=== PATIENT | male | born 1955 | race African-American/Black ===

== ENCOUNTER 2019-03-09 22:38 | Inpatient (IN) | payer MEDICAID, OTHER ==
[~2019-03-09] VITALS: Ht 172.7 cm; Wt 118.8 kg
[~2019-03-09 22:38] MED LIST: NKM
--- NOTE | 2019-03-09 22:40 | NUR ---
ED Nurse Note: Pt brought in from the bus stop by UBALDO DYER for c/o left shoulder pain. Per UBALDO, pt drank vodka today and blood sugar on scene was 166. Pt is wearing wet clothing from being on the streets and is cold to the touch. Pt is able to answer where he is at, name/, and year, but unable to answer other questions at this time. Pt placed on wallpaper hanger helper. Will continue to monitor. Safety measures in place.
[2019-03-09 22:50] VITALS: BP 128/61
--- NOTE | 2019-03-09 22:50 | NUR ---
ED Nurse Note: Rectal temp taken, temp of 99.0 noted. Warming measures in place, pt started on bear hugger per ERMD order. Will continue to monitor.
[2019-03-09] MEDS ORDERED: Bacitracin Oint UD TOPIC ONE (23:00)
[2019-03-09] MEDS ORDERED: Thiamine HCl 100 MG in D5W 55 ML IVPB SCH (23:00)
[2019-03-09] MEDS ORDERED: Tetanus/Diptheria/Pertussis IM ONE (23:00)
--- NOTE | 2019-03-09 23:30 | NUR ---
ED Nurse Note: noted multiple skin tears to pt left knee.
[2019-03-09 23:34] LABS: BASOPHILS % (AUTO) 0.4 % (0.0-2.0); EOSINOPHILS % (AUTO) 1.3 % (0.0-3.0); HEMATOCRIT 45.8 % (42.0-52.0); HEMOGLOBIN 15.5 G/DL (14.2-18.0); LYMPHOCYTES % (AUTO) 16.9 % (20.0-45.0); MEAN CORPUSCULAR VOLUME 106 FL (80-99); MONOCYTES % (AUTO) 9.8 % (1.0-10.0); NEUTROPHILS % (AUTO) 71.6 % (45.0-75.0); PLATELET COUNT 141 K/UL (150-450); RED BLOOD COUNT 4.31 M/UL (4.70-6.10); RED CELL DISTRIBUTION WIDTH 12.1 % (11.6-14.8); WHITE BLOOD COUNT 3.5 K/UL (4.8-10.8)
[2019-03-09 23:37] LABS: ANION GAP 12 mmol/L (5-15); BLOOD UREA NITROGEN 4 mg/dL (7-18); CARBON DIOXIDE 22 MMOL/L (21-32); CHLORIDE 93 MMOL/L (98-107); CREATININE 0.7 MG/DL (0.55-1.30); POTASSIUM 3.5 MMOL/L (3.5-5.1); SODIUM 126 MMOL/L (136-145)
[2019-03-09 23:45] LABS: ALANINE AMINOTRANSFERASE 99 U/L (12-78); ALBUMIN 3.1 G/DL (3.4-5.0); ALBUMIN/GLOBULIN RATIO 0.5 (1.0-2.7); ALKALINE PHOSPHATASE 108 U/L (46-116); ASPARTATE AMINO TRANSFERASE 186 U/L (15-37); BILIRUBIN,TOTAL 0.8 MG/DL (0.2-1.0); CREATINE KINASE 244 U/L (26-308)
[2019-03-09 23:50] VITALS: BP 136/84
--- NOTE | 2019-03-09 23:50 | NUR ---
ED Nurse Note: Rectal temp retaken, temp of 87.4 noted. ERMD notified.
--- NOTE | 2019-03-09 23:56 | Emergency Room Report ---
History of Present Illness General Chief Complaint: Pain Source: Patient Present Illness HPI Patient transported by paramedics and found on a bus stop. He has been drinking alcohol but complained about left shoulder pain. They state that he denies all other symptoms. They feel he is skin is cold. Patient is unable to answer questions. Allergies: Coded Allergies: No Known Allergies (Unverified , 06/02/15) Patient History Limited by: medical condition Past Medical History: see triage record Nursing Documentation-[facility] Past Medical History: No History, Except For Hx Hypertension: Yes Physical Exam Vital Signs Date Time Temp Pulse Resp B/P (MAP) Pulse Ox O2 Delivery O2 Flow Rate FiO2 03/09/19 22:33 98.1 71 18 177/104 (128) 94 Room Air General Appearance: lethargic, obese, other - Disheveled, Chronically Ill Head: normocephalic, atraumatic Eyes: bilateral eye PERRL, bilateral eye EOMI - Nystagmus, bilateral eye Scleral Injection ENT: moist mucus membranes - No lingual trauma Neck: full range of motion, no bony tend Respiratory: chest non-tender, lungs clear, normal breath sounds Cardiovascular #1: regular rate, rhythm, edema - Lower extremities Cardiovascular #2: 2+ radial (L) Gastrointestinal: non tender, decreased bowel sounds, overweight Genitourinary: normal inspection, no CVA tenderness Musculoskeletal: decreased range of motion, normal range of motion, tender - Left shoulder and left knee Neurologic: motor strength/tone normal, sensory intact, responsive, other - Speech slurred Psychiatric: depressed affect Skin: laceration - Left knee left elbow old, other - Cool Procedures Critical Care Time Critical Care Time Total Critical Care Time: 90 min bedside evaluation and treatment excludes procedures (EKG). Reason for critical care: Hypothermia, possible sepsis, acute alcohol intoxication Possible complications: hypotension, hypertension, DC, shock, arrhythmias, metabolic acidosis, end organ damage, respiratory failure. Interventions: Rewarming, fluid bolus, antibiotics Course: Patient presents with altered level of consciousness and hypothermia. Immediate rewarming begun. We were evaluation for possible sepsis. Evaluation of left arm pain. Core temperature dropped. Possible Ariza waves. Antibiotics begun. Source of infection unclear. Alcohol elevated. Repeat evaluation. Discussion with [place] physician. Multiple discussions with [place] regarding finding admitting physician. Core temperature improving. Patient mentation somewhat improving. Consultations: nursing staff, EMS, respiratory therapy, [place] physician deeming patient unstable for transfer admitting physician, Performed by: Dr. Huber Tolerated well condition = critical Medical Decision Making Diagnostic Impression: Primary Impression: Hypothermia Qualified Codes: T68.XXXA - Hypothermia, initial encounter Additional Impressions: Laceration of left knee Qualified Codes: S81.012A - Laceration without foreign body, left knee, initial encounter Elevated lactic acid level Alcohol intoxication Qualified Codes: F10.929 - Alcohol use, unspecified with intoxication, unspecified Hyponatremia ER Course Patient presents with altered level consciousness complaining of left arm pain and cold. Differential includes sepsis, acute myocardial infarction, alcohol ingestion, other drug ingestions, left knee and left arm contusions, electrolyte imbalance amongst others. Evaluation with EKG, chest x-ray and labs. Thiamine indicated. Rewarming initiated. Clinically elbow and knee have no fractures however these need to be reevaluated. The lacerations appear old and wound care will be administered. Tetanus is given. EKG with bradycardia and possible early Ariza waves. Chest x-ray no infiltrates. Widened mediastinum. White count normal. Sodium low. Elevated BNP. SEPSIS RE-EVALUATION: Patient with elevated lactic acid and hypothermia. White count is normal. Mentation is still altered but he has alcohol on board. Blood pressure and pulse have been stable although he is bradycardic. Due to the elevated lactic acid antibiotics are ordered. Chest x-ray shows no infiltrates. Broad-spectrum antibiotics will be administered. I, Pato Huebr MD, Performed the Sepsis Re-evaluation at 23:55. Temperature dropped to 87.6 with improved circulation from extremities. Rewarming continues. Temperature 88. 00:57. Discussed with Dr. Mcintosh at [facility]. As unable to continue to treat hypothermia , patient not transferrable. Multiple discussions with [facility] regarding which physician will be responsible for admitting patient. They are unable to contact any physician. Contact Dr. Funes and doctor Jaden for admission. Patient improved and admitted to stepdown unit. Labs Test 03/11/19 04:55 03/11/19 11:10 03/12/19 12:00 03/13/19 11:41 White Blood Count 4.7 K/UL (4.8-10.8) Red Blood Count 3.35 M/UL (4.70-6.10) Hemoglobin 12.0 G/DL (14.2-18.0) Hematocrit 36.5 % (42.0-52.0) Mean Corpuscular Volume 109 FL (80-99) Mean Corpuscular Hemoglobin 36.0 PG (27.0-31.0) Mean Corpuscular Hemoglobin Concent 33.0 G/DL (32.0-36.0) Red Cell Distribution Width 12.9 % (11.6-14.8) Platelet Count 95 K/UL (150-450) Mean Platelet Volume 7.4 FL (6.5-10.1) Neutrophils (%) (Auto) % (45.0-75.0) Lymphocytes (%) (Auto) % (20.0-45.0) Monocytes (%) (Auto) % (1.0-10.0) Eosinophils (%) (Auto) % (0.0-3.0) Basophils (%) (Auto) % (0.0-2.0) Differential Total Cells Counted 100 Neutrophils % (Manual) 65 % (45-75) Lymphocytes % (Manual) 16 % (20-45) Monocytes % (Manual) 18 % (1-10) Eosinophils % (Manual) 1 % (0-3) Basophils % (Manual) 0 % (0-2) Band Neutrophils 0 % (0-8) Platelet Estimate Decreased Platelet Morphology Normal Macrocytosis 1+ Sodium Level 142 MMOL/L (136-145) Potassium Level 3.7 MMOL/L (3.5-5.1) Chloride Level 109 MMOL/L (98-107) Carbon Dioxide Level 26 MMOL/L (21-32) Anion Gap 7 mmol/L (5-15) Blood Urea Nitrogen 7 mg/dL (7-18) Creatinine 1.1 MG/DL (0.55-1.30) Estimat Glomerular Filtration Rate > 60 mL/min (>60) Glucose Level 129 MG/DL (74-106) Calcium Level 7.7 MG/DL (8.5-10.1) Phosphorus Level 2.1 MG/DL (2.5-4.9) Magnesium Level 2.1 MG/DL (1.8-2.4) Total Bilirubin 1.7 MG/DL (0.2-1.0) Direct Bilirubin 0.9 MG/DL (0.0-0.3) Aspartate Amino Transf (AST/SGOT) 181 U/L (15-37) Alanine Aminotransferase (ALT/SGPT) 78 U/L (12-78) Alkaline Phosphatase 84 U/L (46-116) Troponin I 0.007 ng/mL (0.000-0.056) Total Protein 6.6 G/DL (6.4-8.2) Albumin 2.1 G/DL (3.4-5.0) Globulin 4.5 g/dL Albumin/Globulin Ratio 0.5 (1.0-2.7) Thyroid Stimulating Hormone (TSH) 1.764 uiU/mL (0.358-3.740) Vancomycin Level Trough 12.7 ug/mL (5.0-12.0) 10.2 ug/mL (5.0-12.0) 11.3 ug/mL (5.0-12.0) EKG Diagnostic Results Rate: bradycardiac Rhythm: NSR ST Segments: no acute changes - No Ariza waves but near Rhythm Strip Diag. Results EP Interpretation: yes Rhythm: no PVC's, no ectopy, other - Bradycardia Chest X-Ray Diagnostic Results Chest X-Ray Diagnostic Results : Chest X-Ray Ordered: Yes # of Views/Limited/Complete: 1 View Indication: Other EP Interpretation: Yes Interpretation: no consolidation, no effusion, no pneumothorax Impression: No acute disease Electronically Signed by: Electronically signed by Pato Huber MD Last Vital Signs Date Time Temp Pulse Resp B/P (MAP) Pulse Ox O2 Delivery O2 Flow Rate FiO2 03/10/19 09:56 Room Air 03/10/19 08:00 98.0 130 20 116/60 (78) 99 Status: improved Disposition: ADMITTED INPATIENT Condition: Critical Referrals: [facility] (PCP) Pato Huber MD Mar 09, 2019 23:56
[2019-03-10] VITALS (9 sets, daily range): BP systolic 98–123; BP diastolic 48–71
[2019-03-10] MEDS ORDERED: Piperacillin/Tazobactam 3.375 GM in NS 110 ML IVPB ONE ×2
[2019-03-10] MEDS ORDERED: Vancomycin 1.5 GM in NS 275 ML IVPB ONE ×2
[2019-03-10 00:30] LABS: APPEARANCE,URINE CLEAR; BILIRUBIN, URINE NEGATIVE (NEGATIVE); COLOR,URINE PALE YELLOW; GLUCOSE, URINE (UA) NEGATIVE (NEGATIVE); KETONES,URINE NEGATIVE (NEGATIVE); LEUKOCYTE ESTERASE ,URINE NEGATIVE (NEGATIVE); NITRITE,URINE NEGATIVE (NEGATIVE); PH,URINE 6 (4.5-8.0); PROTEIN,URINE NEGATIVE (NEGATIVE); UROBILINOGEN,URINE NORMAL MG/DL (0.0-1.0)
--- NOTE | 2019-03-10 00:55 | NUR ---
ED Nurse Note: Rectal temp 88.9, ERMD notified.
[2019-03-10] MEDS ORDERED: Sodium Chloride 2,900 ML IVLG ONE (01:15)
--- NOTE | 2019-03-10 01:15 | NUR ---
ED Nurse Note: Repeat lactic drawn by RN and sent to lab.
--- NOTE | 2019-03-10 02:30 | NUR ---
ED Nurse Note: Pt sleeping comfortably in bed. No acute distress noted. Warming measures in place. Will continue to monitor.
[2019-03-10] MEDS ORDERED: Zosyn 3.375gm inj ONE (02:45)
--- NOTE | 2019-03-10 03:02 | NUR ---
ED Nurse Note: Rectal temp 91.5. ERMD notified.
--- NOTE | 2019-03-10 03:10 | NUR ---
ED Nurse Note: Report given to REJI Clement.
--- NOTE | 2019-03-10 03:30 | NUR ---
ED Nurse Note: Pt taken to SDU via gurney with RN and tech. Pt connected to ditch digger for transfer to floor. Pt is now awake and alert. 20G iv R ac is patent and intact. Pt belongings sent with pt.
--- NOTE | 2019-03-10 03:50 | NUR ---
NURSE NOTES: Pt admitted from ER. Received report from REJI Nieves. Pt is resting on the bed and drowsy and AOx2. Iv site intact and no sign of infiltration noted. On RA and SaO2 99% noted. Applied Tele monitor. Denied pain at this time. Noted multiple skin tear and scratch wound on both legs and Rt. Knee and Rt. arm and elbow. Noted old scar on forehead area. Checked BT ; 91.4 on Axially. Continue to warming treatment with nina hugger. Pt has Moran cath and yellowish urine urinated. Cleaned Pt. Given admission instruction. Noted $63 mendieta. Left message to Sr. Funes for admission order. Will continue to monitor any change of condition and continue to care plan.
--- NOTE | 2019-03-10 06:00 | NUR ---
NURSE NOTES: Left message to Dr. Funes again for admission order and awaiting call back.
--- NOTE | 2019-03-10 07:43 | NUR ---
HAND-OFF: Report given to REJI Moctezuma. Pt is resting on the bed and no sign of acute distress noted. Get call back from Dr. Funes and received admission order.
[2019-03-10] MEDS: Heparin 5000 units/ml inj SUBQ SCH ×2 (08:08→20:53)
--- NOTE | 2019-03-10 08:10 | NUR ---
loretta aldridge d/c as ordered will continue to monitor per protocol.
[2019-03-10] MEDS: D5 1/2NS w/KCl 20mEq 1,000 ML IV SCH ×2 (08:40→21:15)
[2019-03-10 08:56] LABS: BASOPHILS % (AUTO) 0.7 % (0.0-2.0); EOSINOPHILS % (AUTO) 0.8 % (0.0-3.0); HEMATOCRIT 40.1 % (42.0-52.0); HEMOGLOBIN 13.5 G/DL (14.2-18.0); LYMPHOCYTES % (AUTO) 8.2 % (20.0-45.0); MEAN CORPUSCULAR VOLUME 108 FL (80-99); MONOCYTES % (AUTO) 14.5 % (1.0-10.0); NEUTROPHILS % (AUTO) 75.8 % (45.0-75.0); PLATELET COUNT 125 K/UL (150-450); RED CELL DISTRIBUTION WIDTH 12.2 % (11.6-14.8); WHITE BLOOD COUNT 5.2 K/UL (4.8-10.8)
[2019-03-10 09:03] LABS: ALANINE AMINOTRANSFERASE 74 U/L (12-78); ALBUMIN 2.3 G/DL (3.4-5.0); ALBUMIN/GLOBULIN RATIO 0.5 (1.0-2.7); ALKALINE PHOSPHATASE 82 U/L (46-116); ANION GAP 10 mmol/L (5-15); ASPARTATE AMINO TRANSFERASE 145 U/L (15-37); BLOOD UREA NITROGEN 4 mg/dL (7-18); CALCIUM 7.2 MG/DL (8.5-10.1); CARBON DIOXIDE 24 MMOL/L (21-32); CHLORIDE 104 MMOL/L (98-107); CREATININE 0.6 MG/DL (0.55-1.30); POTASSIUM 3.4 MMOL/L (3.5-5.1); SODIUM 138 MMOL/L (136-145)
[2019-03-10] MEDS: Vancomycin 1.5gm/NS Premix IVPB SCH ×2 (11:59→23:49)
--- NOTE | 2019-03-10 12:23 | Diagnostic Imaging Report ---
Indication: Altered mental status, shortness of breath Technique: XRAY Chest 1v Comparison: None Findings: Limited exam with low lung volumes. Cardiac mediastinal contour appears enlarged although this may be exaggerated by low lung volumes and rotation. There are atherosclerotic calcifications in the aorta. Apparent prominence of the pulmonary vascularity and streaky opacities at the bases. No radiographically appreciable pleural effusion or pneumothorax. There are degenerative changes in the spine. No acute osseous abnormality. Impression: Limited exam with low lung volumes and patient rotation. Prominence of the cardiomediastinal silhouette and vascular markings may be artifactual and related to low lung volumes. Correlate clinically to assess for cardiomegaly and mild congestive changes. Streaky bibasilar likely expiratory atelectatic changes.
--- NOTE | 2019-03-10 13:55 | NUR ---
*-* INSURANCE *-* ALL AVAILABLE CLINICALS HAVE BEEN FAXED TO: [employer] ([facility]ONH) MIKY:KEN REF# [id number] [place] [id number] P: [phone] DIRECT TO MIKY F: [phone] P: [phone]
[2019-03-10] MEDS: Piperacillin/Tazobactam 3.375 GM in NS 110 ML IVPB SCH ×2 (13:57→21:15)
--- NOTE | 2019-03-10 14:40 | NUR ---
CASE MANAGEMENT:REVIEW 64 YR OLD MALE BIBA FROM STREET CC;PAIN SI;HYPOTHERMIA. ETOH INTOXICATION. 98.0 71 18 177/104 94% RA WBC 3.5 PLT 141 LAC ACID 3.60 IS;NS IV VANCO IV ZOSYN IV LEVOQUIN IV ADMITTED TO SDU
[2019-03-10] MEDS ORDERED: Thiamine 100mg tab ORAL SCH (15:00)
[2019-03-10] MEDS ORDERED: LORazepam 1mg tab ORAL PRN ×2 (15:00→15:22)
--- NOTE | 2019-03-10 15:12 | History & Physical ---
History and Physical History & Physicial Brandin Funes MD Mar 10, 2019 15:11
--- NOTE | 2019-03-10 17:22 | NUR ---
patient unable to urinate since the folly cath removed. bladder residual 430 per bladder scan. folly cath reinserted and 530 ml dark color urine out put recorded. will continue to monitor.
--- NOTE | 2019-03-10 17:23 | Cardiac Electrophysiology PN ---
Subjective Subjective [id number] Objective Last 24 Hour Vital Signs Date Time Temp Pulse Resp B/P (MAP) Pulse Ox O2 Delivery O2 Flow Rate FiO2 03/10/19 16:16 98.7 03/10/19 13:51 130 116/60 03/10/19 12:00 Room Air 03/10/19 12:00 130 03/10/19 12:00 97.9 130 20 116/60 (78) 94 03/10/19 11:13 118 03/10/19 09:56 Room Air 03/10/19 08:00 Room Air 03/10/19 08:00 98.0 118 20 114/64 (81) 94 03/10/19 06:30 97.7 03/10/19 05:00 96.3 03/10/19 04:00 96 03/10/19 04:00 Room Air 03/10/19 03:50 91.4 96 20 113/62 (79) 99 03/10/19 03:30 91.5 72 12 101/63 100 Room Air 03/10/19 03:02 91.5 85 14 109/57 100 Room Air 03/10/19 02:30 74 11 101/63 99 Room Air 03/10/19 00:54 88.9 73 16 119/71 100 Room Air 03/09/19 23:50 87.4 57 10 136/84 100 Room Air 03/09/19 22:50 99.0 55 12 128/61 100 Room Air 03/09/19 22:33 98.1 71 18 177/104 (128) 94 Room Air Intake and Output 03/09/19 03/10/19 19:00 07:00 Intake Total 1481 ml Output Total 5350 ml Balance -3869 ml Intake IV Total 1481 ml Output Urine Total 5350 ml Laboratory Tests Test 03/09/19 22:50 03/10/19 00:00 03/10/19 01:24 03/10/19 08:05 White Blood Count 3.5 K/UL (4.8-10.8) L 5.2 K/UL (4.8-10.8) Red Blood Count 4.31 M/UL (4.70-6.10) L 3.70 M/UL (4.70-6.10) L Hemoglobin 15.5 G/DL (14.2-18.0) 13.5 G/DL (14.2-18.0) L Hematocrit 45.8 % (42.0-52.0) 40.1 % (42.0-52.0) L Mean Corpuscular Volume 106 FL (80-99) H 108 FL (80-99) H Mean Corpuscular Hemoglobin 35.9 PG (27.0-31.0) H 36.5 PG (27.0-31.0) H Mean Corpuscular Hemoglobin Concent 33.8 G/DL (32.0-36.0) 33.7 G/DL (32.0-36.0) Red Cell Distribution Width 12.1 % (11.6-14.8) 12.2 % (11.6-14.8) Platelet Count 141 K/UL (150-450) L 125 K/UL (150-450) L Mean Platelet Volume 7.4 FL (6.5-10.1) 7.4 FL (6.5-10.1) Neutrophils (%) (Auto) 71.6 % (45.0-75.0) 75.8 % (45.0-75.0) H Lymphocytes (%) (Auto) 16.9 % (20.0-45.0) L 8.2 % (20.0-45.0) L Monocytes (%) (Auto) 9.8 % (1.0-10.0) 14.5 % (1.0-10.0) H Eosinophils (%) (Auto) 1.3 % (0.0-3.0) 0.8 % (0.0-3.0) Basophils (%) (Auto) 0.4 % (0.0-2.0) 0.7 % (0.0-2.0) Sodium Level 126 MMOL/L (136-145) L 138 MMOL/L (136-145) # Potassium Level 3.5 MMOL/L (3.5-5.1) 3.4 MMOL/L (3.5-5.1) L Chloride Level 93 MMOL/L (98-107) L 104 MMOL/L (98-107) Carbon Dioxide Level 22 MMOL/L (21-32) 24 MMOL/L (21-32) Anion Gap 12 mmol/L (5-15) 10 mmol/L (5-15) Blood Urea Nitrogen 4 mg/dL (7-18) L 4 mg/dL (7-18) L Creatinine 0.7 MG/DL (0.55-1.30) 0.6 MG/DL (0.55-1.30) Estimat Glomerular Filtration Rate > 60 mL/min (>60) > 60 mL/min (>60) Glucose Level 174 MG/DL (74-106) H 93 MG/DL (74-106) Lactic Acid Level 3.60 mmol/L (0.4-2.0) H 3.40 mmol/L (0.66-2.22) H 3.40 mmol/L (0.4-2.0) H Calcium Level 8.0 MG/DL (8.5-10.1) L 7.2 MG/DL (8.5-10.1) L Magnesium Level 1.9 MG/DL (1.8-2.4) 1.5 MG/DL (1.8-2.4) L Total Bilirubin 0.8 MG/DL (0.2-1.0) 1.0 MG/DL (0.2-1.0) Aspartate Amino Transf (AST/SGOT) 186 U/L (15-37) H 145 U/L (15-37) H Alanine Aminotransferase (ALT/SGPT) 99 U/L (12-78) H 74 U/L (12-78) Alkaline Phosphatase 108 U/L (46-116) 82 U/L (46-116) Total Creatine Kinase 244 U/L (26-308) Troponin I 0.000 ng/mL (0.000-0.056) Total Protein 9.1 G/DL (6.4-8.2) H 7.0 G/DL (6.4-8.2) Albumin 3.1 G/DL (3.4-5.0) L 2.3 G/DL (3.4-5.0) L Globulin 6.0 g/dL 4.7 g/dL Albumin/Globulin Ratio 0.5 (1.0-2.7) L 0.5 (1.0-2.7) L Thyroid Stimulating Hormone (TSH) 0.765 uiU/mL (0.358-3.740) Salicylates Level < 0.2 ug/mL (2.8-20) L Acetaminophen Level < 2 MCG/ML (10-30) L Serum Alcohol 358 mg/dL Urine Color Pale yellow Urine Appearance Clear Urine pH 6 (4.5-8.0) Urine Specific [place] 1.005 (1.005-1.035) Urine Protein Negative (NEGATIVE) Urine Glucose (UA) Negative (NEGATIVE) Urine Ketones Negative (NEGATIVE) Urine Blood 1+ (NEGATIVE) H Urine Nitrite Negative (NEGATIVE) Urine Bilirubin Negative (NEGATIVE) Urine Urobilinogen Normal MG/DL (0.0-1.0) Urine Leukocyte Esterase Negative (NEGATIVE) Urine RBC 0-2 /HPF (0 - 0) H Urine WBC 0-2 /HPF (0 - 0) Urine Squamous Epithelial Cells Occasional /LPF Urine Bacteria Occasional /HPF (NONE) Urine Opiates Screen Negative (NEGATIVE) Urine Barbiturates Screen Negative (NEGATIVE) Phencyclidine (PCP) Screen Negative (NEGATIVE) Urine Amphetamines Screen Negative (NEGATIVE) Urine Benzodiazepines Screen Negative (NEGATIVE) Urine Cocaine Screen Negative (NEGATIVE) Urine Marijuana (THC) Screen Negative (NEGATIVE) Phosphorus Level 4.0 MG/DL (2.5-4.9) Microbiology Date/Time Source Procedure Growth Status 03/09/19 23:55 Nose - Final Complete 03/09/19 23:55 Nose - Final Complete Yevgeniy Rondon MD Mar 10, 2019 17:23
--- NOTE | 2019-03-10 18:15 | History and Physical Report ---
DATE OF ADMISSION: 03/10/2019 CHIEF COMPLAINT: Altered mental status and weakness. HISTORY OF PRESENT ILLNESS: This is a 64 years old gentleman, who denies any past medical history or past surgical history, who presented to the emergency department after he was found by paramedics on the bus stop. The patient has been drinking alcohol, complained about left shoulder pain, and stated that he denies any fall or trauma. He feels his skin is cool and shortly after initial evaluation in the emergency department, the patient was noted to be hypothermic as well as severe weakness shortly and subsequently, the patient was admitted to the hospital with hypothermia as well as left knee laceration and alcohol intoxication with hyponatremia. PAST MEDICAL HISTORY: None. PAST SURGICAL HISTORY: None. MEDICATIONS AT HOME: None. ALLERGIES: No known drug allergies. SOCIAL HISTORY: Denies any substance abuse. He stated he only drinks twice a week, which I am not sure about that. Denies any smoking. FAMILY HISTORY: Noncontributory. REVIEW OF SYSTEMS: Mostly as above. Denies any dysuria, frequency, or hematuria. Denies any hemoptysis or hematochezia. Denies any double vision. PHYSICAL EXAMINATION: VITAL SIGNS: On admission from the ER, temperature 98.1 degrees, pulse of 71, respirations 18, and blood pressure 177/104. GENERAL: The patient is awake, responsive, no acute distress. HEAD AND NECK: Pupils are reactive to light. Extraocular movements intact. Neck was supple. No JVD. LUNGS: Good air entry with no wheezing or rales. HEART: S1, S2. Tachycardic. No murmur or gallops. ABDOMEN: Soft, nondistended, nontender, and morbidly obese. EXTREMITIES: No cyanosis or clubbing. +1 edema. The patient has a blister on lower extremity. NEUROLOGIC: Cranial nerves II through XII grossly intact. The patient is moving all extremities. Gait was not assessed due to the patient's status. RECTAL: Refused and deferred. GENITOURINARY: Refused and deferred. PSYCHIATRIC: Mood and affect is intact. LABORATORY AND DIAGNOSTIC DATA: On admission, sodium 126, potassium 3.5, chloride 93, bicarbonate 22, BUN 4, creatinine 0.7, glucose is 174, and calcium is 8.0. AST of 186, ALT of 99, and alkaline phosphatase 108. Total CK is 244. Albumin is 3.1. TSH is 0.765. WBC of 3.5, hemoglobin of 15, hematocrit 45, and platelet is 141,000. Urine drug screen negative. Alcohol level is 358. No acetaminophen . Urinalysis, +1 blood, otherwise negative. The patient's chest x-ray noted to be low lung volume. The patient's rotated prominence of the cardiomediastinal silhouette with vascular marking may be artificial and related to the lower lung volume. Strict bibasilar likely exploration atelectasis changes. The patient's EKG was done, noted to be EKG with sinus tachycardia, ventricular rate of 135, no ST elevation was noted. Q-wave was noted in leads I, II as well as aVL. No T-wave inversion. ASSESSMENT: 1. Sepsis, possible lactic acidosis. 2. Tachycardia. 3. Dehydration. 4. Alcohol abuse. 5. Hypothermia. 6. Hyponatremia. 7. Hypomagnesemia. PLAN: 1. Admit the patient to [facility]. 2. We will follow up laboratory and IV hydration. 3. Follow up with cultures. 4. Code status is Full Code. 5. DVT prophylaxis. 6. Heparin subcutaneous. 7. Start the patient on broad-spectrum antibiotics with vancomycin and Zosyn. 8. Start the patient on aggressive IV hydration, magnesium, and potassium supplements. 9. We will follow up with the 2D echo. Brandin Funes M.D. DR: Rod JOB#: [id number] CC:
--- NOTE | 2019-03-10 19:00 | Consultation ---
DATE OF CONSULTATION: 03/10/2019 CARDIOLOGY CONSULTATION CONSULTING PHYSICIAN: Yevgeniy Rondon M.D. REASON FOR CONSULTATION: Tachycardia. HISTORY OF PRESENT ILLNESS: The patient is a 64-year-old gentleman who was found at a bus stop and was reported by paramedics as he has been drinking alcohol, but he was also complaining of left shoulder pain. The patient denied any other symptoms. The patient's blood pressure in the ER was 177/104 with heart rate of 71. Subsequently, he had a 12-lead EKG today that was in sinus tachycardia at 135 beats per minute and possible inferior wall infarct. The patient was admitted and a Cardiology consultation was obtained for further evaluation. REVIEW OF SYSTEMS: Negative other than what is mentioned in the history of present illness. PAST MEDICAL HISTORY: Hypertension. FAMILY HISTORY: Noncontributory. SOCIAL HISTORY: He denies smoking, but drinks alcohol. PHYSICAL EXAMINATION: VITAL SIGNS: Show blood pressure of 116/60, pulse was 130, respirations 18, and he is afebrile. HEAD AND NECK: Showed no JVD. LUNGS: Clear. CARDIOVASCULAR: Tachycardic. S1 and S2 with no gallop or murmur. ABDOMEN: Soft. EXTREMITIES: No pitting edema. LABORATORY AND DIAGNOSTIC DATA: His EKG shows sinus tachycardia at 135, possible infarct. Labs show white count of 5.2, hemoglobin 13.5, hematocrit of 40, and platelet count is 125. Sodium 138, potassium 3.4, BUN of 4, creatinine 0.6. Troponin is negative. His echocardiogram also showed EF of 60 to 65%. ASSESSMENT AND PLAN: 1. Tachycardia, likely due to alcohol withdrawal. His serum alcohol was 358. Heart rate is improved. There is no evidence of SVT or atrial fibrillation. 2. Hypertension. Continue metoprolol 25 mg b.i.d. 3. Sepsis, on IV antibiotics. 4. Heavy alcohol use, on thiamine and folate. Thank you much, Dr. Funes, for allowing me to participate in the care of this patient. Please do not hesitate to contact me for any questions regarding my evaluation. Yevgeniy Rondon M.D. DR: RAJ JOB#: [id number] CC:
--- NOTE | 2019-03-10 19:30 | NUR ---
NURSE NOTES: Received report from Rhianna Arias RN. Pt is A&O x 2, ST at 107 BPM, BP 98/48, T 98.8, RR 20, sating at 100% on room air. Pt denies any pain or distress at this time, no signs or symptoms noted. RAC 20g and R hand 24g PIVs, patent, running D5 1/2 NS with KCL 20 mEq @ 75ml/hr and Zosyn respectively, intact, and asymptomatic. Bed in lowest position, bed alarmed armed, pt wearing yellow socks and gown, call light within reach. Pt informed to use call light if assistance is needed, pt nodded in agreement. Will continue to monitor closely and plan of care.
--- NOTE | 2019-03-10 19:39 | NUR ---
Belén from [facility] called for up date on patient statue.Her call back number [phone]
[2019-03-10] MEDS ORDERED: Tamsulosin 0.4mg cap ORAL SCH (21:00)
--- NOTE | 2019-03-10 23:45 | Consultation ---
DATE OF CONSULTATION: 03/10/2019 CONSULTING PHYSICIAN: Lino Devries M.D. HISTORY OF PRESENT ILLNESS: This is a 64-year-old obese male with history of multiple medical issues including weakness and altered mental status, admitted to the hospital. The patient has a history of alcohol dependence and he drinks on a regular basis. The patient presents with depressed mood, anxiety. He self-medicates PAST PSYCHIATRIC HISTORY: Significant for anxiety, depression. ALLERGIES: No known drug allergies. SUBSTANCE ABUSE HISTORY: Alcohol. He has been using alcohol for several years. MENTAL STATUS EXAMINATION: The patient oriented x4. Overweight. Mood is anxious. Affect is constricted, congruent with mood. Thought process is concrete. Thought content, no suicidal or homicidal ideation. Cognition is impaired. Insight and judgment limited. ASSESSMENT: [place] I Alcohol dependence. Alcohol withdrawal. [place] II Deferred. [place] III As above. [place] IV Low. [place] V 50. PLAN: 1. We will start the patient on Prozac, increase the Ativan 2 mg every 6 hours. 2. . 3. Thiamine. 4. We will continue current medications. Provide the patient with reality orientation and supportive therapy. Lino Devries M.D. DR: YOSELIN JOB#: [id number] CC: CASS
[2019-03-11] VITALS: BP 105/50
[2019-03-11 04:00] VITALS: BP 124/70
[2019-03-11] MEDS: Piperacillin/Tazobactam 3.375 GM in NS 110 ML IVPB SCH ×3 (05:09→22:39)
[2019-03-11 06:56] LABS: ALANINE AMINOTRANSFERASE 78 U/L (12-78); ALBUMIN 2.1 G/DL (3.4-5.0); ALBUMIN/GLOBULIN RATIO 0.5 (1.0-2.7); ALKALINE PHOSPHATASE 84 U/L (46-116); ANION GAP 7 mmol/L (5-15); ASPARTATE AMINO TRANSFERASE 181 U/L (15-37); BILIRUBIN,TOTAL 1.7 MG/DL (0.2-1.0); BLOOD UREA NITROGEN 7 mg/dL (7-18); CALCIUM 7.7 MG/DL (8.5-10.1); CARBON DIOXIDE 26 MMOL/L (21-32); CHLORIDE 109 MMOL/L (98-107); CREATININE 1.1 MG/DL (0.55-1.30); PHOSPHORUS 2.1 MG/DL (2.5-4.9); POTASSIUM 3.7 MMOL/L (3.5-5.1); SODIUM 142 MMOL/L (136-145)
[2019-03-11 06:57] LABS: BILIRUBIN,DIRECT 0.9 MG/DL (0.0-0.3)
[2019-03-11] MEDS ORDERED: LORazepam 1mg tab ORAL PRN (07:00)
[2019-03-11 07:03] LABS: HEMATOCRIT 36.5 % (42.0-52.0); MEAN CORPUSCULAR VOLUME 109 FL (80-99); PLATELET COUNT 95 K/UL (150-450); RED BLOOD COUNT 3.35 M/UL (4.70-6.10); RED CELL DISTRIBUTION WIDTH 12.9 % (11.6-14.8); WHITE BLOOD COUNT 4.7 K/UL (4.8-10.8)
--- NOTE | 2019-03-11 07:37 | NUR ---
HAND-OFF: Report given to REJI Banegas in tele. Pt in stable condition.
[2019-03-11 08:00] VITALS: BP 134/85
--- NOTE | 2019-03-11 08:14 | NUR ---
NURSE NOTES: Received patient from Gio Lopez. Patient being transferred to floor from SDU. Patient is awake and alert. Moran catheter noted with pinkish urine and occasional blood clots will notify Dr. Funes and obtain order for irrigation. Patient has no complain of pain or discomfort at this time. Oriented to room and safety precautions activated. CAll faust within patients reach. Will follow.
[2019-03-11] MEDS: Thiamine 100mg tab ORAL SCH (09:05)
--- NOTE | 2019-03-11 11:13 | Internal Med Progress Note ---
Subjective Physician Name Brandin Funes Attending Physician Brandin Funes MD Current Medications Medications (Trade) Dose Ordered Sig/Thi Route PRN Reason Start Time Stop Time Status Last Admin Dose Admin Acetaminophen (Tylenol) 650 mg Q6H PRN ORAL Mild Pain/Temp > 100.5 03/11/19 07:00 04/09/19 06:59 Dextrose/ Electrolytes 1,000 ml @ 75 mls/hr [id number] IV 03/11/19 10:30 04/09/19 10:29 Fluoxetine HCl (PROzac) 20 mg DAILY ORAL 03/11/19 09:00 04/09/19 16:59 03/11/19 09:05 Folic Acid (Folate) 1 mg DAILY ORAL 03/11/19 09:00 04/09/19 14:59 03/11/19 09:05 Heparin Sodium (Porcine) (Heparin 5000 units/ml) 5,000 units EVERY 12 HOURS SUBQ 03/11/19 09:00 04/09/19 08:59 UNV Lorazepam (Ativan) 2 mg Q6H PRN ORAL For Anxiety 03/11/19 07:00 03/17/19 06:59 Metoprolol Tartrate (Lopressor) 25 mg Q12HR ORAL 03/11/19 09:00 04/09/19 13:44 03/11/19 09:05 Piperacillin Sod/ Tazobactam Sod 3.375 gm/Sodium Chloride 110 ml @ 27.5 mls/hr Q8HR IVPB 03/11/19 14:00 03/17/19 13:59 Tamsulosin HCl (Flomax) 0.4 mg QHS ORAL 03/11/19 21:00 04/09/19 20:59 Thiamine HCl (Vitamin B1) 100 mg DAILY ORAL 03/11/19 09:00 04/09/19 14:59 03/11/19 09:05 Vancomycin HCl (Vanco rx to dose) 1 ea DAILY PRN MISC Per rx protocol 03/11/19 09:00 04/09/19 07:44 Vancomycin/Sodium Chloride 275 ml @ 137.5 mls/ hr Q12H IVPB 03/11/19 12:00 03/15/19 11:59 Allergies: Coded Allergies: No Known Allergies (Unverified , 06/02/15) Subjective Awake, alert, responsive, unable to urinate status post a Moran catheter placement. Denies any chest pain or shortness of breath. Objective Last Vital Signs Date Time Temp Pulse Resp B/P (MAP) Pulse Ox O2 Delivery O2 Flow Rate FiO2 03/11/19 09:05 83 134/85 03/11/19 08:00 98.4 18 96 03/11/19 08:00 Room Air Laboratory Tests Test 03/11/19 04:55 White Blood Count 4.7 K/UL (4.8-10.8) L Red Blood Count 3.35 M/UL (4.70-6.10) L Hemoglobin 12.0 G/DL (14.2-18.0) L Hematocrit 36.5 % (42.0-52.0) L Mean Corpuscular Volume 109 FL (80-99) H Mean Corpuscular Hemoglobin 36.0 PG (27.0-31.0) H Mean Corpuscular Hemoglobin Concent 33.0 G/DL (32.0-36.0) Red Cell Distribution Width 12.9 % (11.6-14.8) Platelet Count 95 K/UL (150-450) L Mean Platelet Volume 7.4 FL (6.5-10.1) Neutrophils (%) (Auto) % (45.0-75.0) Lymphocytes (%) (Auto) % (20.0-45.0) Monocytes (%) (Auto) % (1.0-10.0) Eosinophils (%) (Auto) % (0.0-3.0) Basophils (%) (Auto) % (0.0-2.0) Differential Total Cells Counted 100 Neutrophils % (Manual) 65 % (45-75) Lymphocytes % (Manual) 16 % (20-45) L Monocytes % (Manual) 18 % (1-10) H Eosinophils % (Manual) 1 % (0-3) Basophils % (Manual) 0 % (0-2) Band Neutrophils 0 % (0-8) Platelet Estimate Decreased L Platelet Morphology Normal Macrocytosis 1+ Sodium Level 142 MMOL/L (136-145) Potassium Level 3.7 MMOL/L (3.5-5.1) Chloride Level 109 MMOL/L (98-107) H Carbon Dioxide Level 26 MMOL/L (21-32) Anion Gap 7 mmol/L (5-15) Blood Urea Nitrogen 7 mg/dL (7-18) Creatinine 1.1 MG/DL (0.55-1.30) # Estimat Glomerular Filtration Rate > 60 mL/min (>60) Glucose Level 129 MG/DL (74-106) H Calcium Level 7.7 MG/DL (8.5-10.1) L Phosphorus Level 2.1 MG/DL (2.5-4.9) L Magnesium Level 2.1 MG/DL (1.8-2.4) Total Bilirubin 1.7 MG/DL (0.2-1.0) H Direct Bilirubin 0.9 MG/DL (0.0-0.3) H Aspartate Amino Transf (AST/SGOT) 181 U/L (15-37) H Alanine Aminotransferase (ALT/SGPT) 78 U/L (12-78) Alkaline Phosphatase 84 U/L (46-116) Troponin I 0.007 ng/mL (0.000-0.056) Total Protein 6.6 G/DL (6.4-8.2) Albumin 2.1 G/DL (3.4-5.0) L Globulin 4.5 g/dL Albumin/Globulin Ratio 0.5 (1.0-2.7) L Thyroid Stimulating Hormone (TSH) 1.764 uiU/mL (0.358-3.740) Microbiology Date/Time Source Procedure Growth Status 03/09/19 23:05 Blood Blood Culture - Preliminary NO GROWTH AFTER 24 HOURS Resulted 03/09/19 22:50 Blood Blood Culture - Preliminary NO GROWTH AFTER 24 HOURS Resulted 03/10/19 00:00 Nasal Nares MRSA Culture - Final NO METHICILLIN RESISTANT STAPH AUREUS... Complete 03/09/19 23:55 Nose - Final Complete 03/09/19 23:55 Nose - Final Complete Intake and Output 03/10/19 03/11/19 19:00 07:00 Intake Total 1167.0 ml Output Total 800 ml 1000 ml Balance -800 ml 167.0 ml Intake Oral 200 ml IV Total 967.0 ml Output Urine Total 800 ml 1000 ml Objective GENERAL: The patient is awake, responsive, no acute distress. HEAD AND NECK: Pupils are reactive to light. Extraocular movements intact. Neck was supple. No JVD. LUNGS: Good air entry with no wheezing or rales. HEART: S1, S2. Tachycardic. No murmur or gallops. ABDOMEN: Soft, nondistended, nontender, and morbidly obese. EXTREMITIES: No cyanosis or clubbing. +1 edema. The patient has a blister on lower extremity. NEUROLOGIC: Cranial nerves II through XII grossly intact. The patient is moving all extremities. RECTAL: Refused and deferred. GENITOURINARY: Moran cath PSYCHIATRIC: Mood and affect is intact. Assessment/Plan Assessment/Plan ASSESSMENT: 1. Sepsis, lactic acidosis. 2. Tachycardia. 3. Dehydration. 4. Alcohol abuse. 5. Hypothermia. 6. Hyponatremia. 7. Hypomagnesemia. 8. Urinary retention. PLAN: 1. in Monitor Unit 2. We will follow up laboratory. 3. Follow up with cultures. 4. Code status is Full Code. 5. DVT prophylaxis. 6. Heparin subcutaneous. 7. Broad-spectrum antibiotics with vancomycin and Zosyn. 8. Start on Flomax 9. 2D echo. Brandin Funes MD Mar 11, 2019 11:13
[2019-03-11] MEDS: D5 1/2NS w/KCl 20mEq 1,000 ML IV SCH ×2 (11:17→23:48)
--- NOTE | 2019-03-11 11:33 | Cardiac Electrophysiology PN ---
Assessment/Plan Assessment/Plan 1. Sinus tachycardia due to alcohol withdrawal. His serum alcohol was 358. Heart rate is improved. There is no evidence of SVT or atrial fibrillation. 2. Hypertension. Continue metoprolol 25 mg b.i.d. 3. Sepsis, on IV antibiotics. 4. Heavy alcohol use, on thiamine and folate. Transfer to [place] pending Subjective Subjective Remained in SR. Awaiting [place] transfer. No CP or SOB Objective Last 24 Hour Vital Signs Date Time Temp Pulse Resp B/P (MAP) Pulse Ox O2 Delivery O2 Flow Rate FiO2 03/11/19 09:05 83 134/85 03/11/19 08:00 96 03/11/19 08:00 98.4 83 18 134/85 (101) 96 03/11/19 08:00 Room Air 03/11/19 04:00 Room Air 03/11/19 04:00 99.0 101 20 124/70 (88) 99 03/11/19 04:00 100 03/11/19 00:00 112 03/11/19 00:00 Room Air 03/11/19 00:00 98.7 112 18 105/50 (68) 99 03/10/19 20:45 107 98/48 03/10/19 20:00 98.3 106 18 98/48 (65) 99 03/10/19 20:00 Room Air 03/10/19 20:00 106 03/10/19 18:07 99.4 128 22 123/54 (77) 94 03/10/19 18:06 Room Air 03/10/19 16:16 98.7 03/10/19 16:00 126 03/10/19 16:00 Room Air 03/10/19 16:00 99.4 128 22 123/54 (77) 94 03/10/19 13:51 130 116/60 03/10/19 12:00 Room Air 03/10/19 12:00 130 03/10/19 12:00 97.9 130 20 116/60 (78) 94 Intake and Output 03/10/19 03/11/19 19:00 07:00 Intake Total 1167.0 ml Output Total 800 ml 1000 ml Balance -800 ml 167.0 ml Intake Oral 200 ml IV Total 967.0 ml Output Urine Total 800 ml 1000 ml Laboratory Tests Test 03/11/19 04:55 03/11/19 11:10 White Blood Count 4.7 K/UL (4.8-10.8) L Red Blood Count 3.35 M/UL (4.70-6.10) L Hemoglobin 12.0 G/DL (14.2-18.0) L Hematocrit 36.5 % (42.0-52.0) L Mean Corpuscular Volume 109 FL (80-99) H Mean Corpuscular Hemoglobin 36.0 PG (27.0-31.0) H Mean Corpuscular Hemoglobin Concent 33.0 G/DL (32.0-36.0) Red Cell Distribution Width 12.9 % (11.6-14.8) Platelet Count 95 K/UL (150-450) L Mean Platelet Volume 7.4 FL (6.5-10.1) Neutrophils (%) (Auto) % (45.0-75.0) Lymphocytes (%) (Auto) % (20.0-45.0) Monocytes (%) (Auto) % (1.0-10.0) Eosinophils (%) (Auto) % (0.0-3.0) Basophils (%) (Auto) % (0.0-2.0) Differential Total Cells Counted 100 Neutrophils % (Manual) 65 % (45-75) Lymphocytes % (Manual) 16 % (20-45) L Monocytes % (Manual) 18 % (1-10) H Eosinophils % (Manual) 1 % (0-3) Basophils % (Manual) 0 % (0-2) Band Neutrophils 0 % (0-8) Platelet Estimate Decreased L Platelet Morphology Normal Macrocytosis 1+ Sodium Level 142 MMOL/L (136-145) Potassium Level 3.7 MMOL/L (3.5-5.1) Chloride Level 109 MMOL/L (98-107) H Carbon Dioxide Level 26 MMOL/L (21-32) Anion Gap 7 mmol/L (5-15) Blood Urea Nitrogen 7 mg/dL (7-18) Creatinine 1.1 MG/DL (0.55-1.30) # Estimat Glomerular Filtration Rate > 60 mL/min (>60) Glucose Level 129 MG/DL (74-106) H Calcium Level 7.7 MG/DL (8.5-10.1) L Phosphorus Level 2.1 MG/DL (2.5-4.9) L Magnesium Level 2.1 MG/DL (1.8-2.4) Total Bilirubin 1.7 MG/DL (0.2-1.0) H Direct Bilirubin 0.9 MG/DL (0.0-0.3) H Aspartate Amino Transf (AST/SGOT) 181 U/L (15-37) H Alanine Aminotransferase (ALT/SGPT) 78 U/L (12-78) Alkaline Phosphatase 84 U/L (46-116) Troponin I 0.007 ng/mL (0.000-0.056) Total Protein 6.6 G/DL (6.4-8.2) Albumin 2.1 G/DL (3.4-5.0) L Globulin 4.5 g/dL Albumin/Globulin Ratio 0.5 (1.0-2.7) L Thyroid Stimulating Hormone (TSH) 1.764 uiU/mL (0.358-3.740) Vancomycin Level Trough Pending Microbiology Date/Time Source Procedure Growth Status 03/09/19 23:05 Blood Blood Culture - Preliminary NO GROWTH AFTER 24 HOURS Resulted 03/09/19 22:50 Blood Blood Culture - Preliminary NO GROWTH AFTER 24 HOURS Resulted 03/10/19 00:00 Nasal Nares MRSA Culture - Final NO METHICILLIN RESISTANT STAPH AUREUS... Complete 03/09/19 23:55 Nose - Final Complete 03/09/19 23:55 Nose - Final Complete Objective HEAD AND NECK: Showed no JVD. LUNGS: Clear. CARDIOVASCULAR: Nl S1 and S2 with no gallop or murmur. ABDOMEN: Soft. EXTREMITIES: No pitting edema. Yevgeniy Rondon MD Mar 11, 2019 11:33
[2019-03-11 12:00] VITALS: BP 139/78
[2019-03-11] MEDS ORDERED: Vancomycin 1.5gm/NS Premix 275 ML IVPB SCH (12:00)
--- NOTE | 2019-03-11 12:37 | NUR ---
CALL RECEIVED FROM [facility] RECEIVED CALL FROM KEN AT [facility] RE TRANSFER TO [facility] WILL FOLLOW UP WITH CM PHOTO PRODUCER
--- NOTE | 2019-03-11 12:39 | NUR ---
CASE MANAGEMENT:REVIEW 03/11/19 SI;SEPSIS. DEHYDRATION. 99.4 130 22 98/48 94% RA CA 7.2 BILI 1.7 AST 181 ALB 2.1 IS;VANCO IV Q8 HR ZOSYN IV Q8 HR IVF NS 75 ML HR HEPARIN SUBC TELE STATUS DCP;TRANSFER TO [facility] PENDING
[2019-03-11] MEDS: Vancomycin 1gm/D5W 275ml IVPB SCH ×4 (13:01→21:18)
--- NOTE | 2019-03-11 13:14 | NUR ---
Social Work This SW received a consult due to substance abuse. This SW met with patient, as well as spoke with brother, Nitesh Gaitan ([phone]) who confirmed that patient is not homeless, but lives alone in a house with three steps. Patient has not been working and will be applying for SSI. This SW explained to brother regarding process/how to apply for SSI (brother has been paying for all of patients living expenses). Brother aware of the possibilities of patient transferring to [place], while also aware patient has shown a decline in ambulation here, will need to determine whether patient will require short rehab. Patient was independent prior, not using any DME and taking cab's for transportation (does not drive). Patient has a long history of substance abuse (daily) and has been in and out of substance abuse treatment, according to brother. This SW spoke with brother and patient regarding the need for patients willingness for change and to remain sober. Substance abuse treatment options and resources discussed with brother and patient (list provided to patient in the room). Pending possible transfer to [facility] at this time. Brother explains he plans to become patients payee, once on SSI, due to patient cannot manage his own finances. Patient remains alert/oriented x3, stating that he has been feeling depressed, while denying any suicidal ideations. Psychiatry-Dr Devries consulted.
--- NOTE | 2019-03-11 13:51 | NUR ---
*-* INSURANCE *-* UPDATED CLINICALS HAVE BEEN FAXED TO: [employer] (JONH) BARB:KEN REF# [id number] P: [phone] DIRECT TO [facility] F: [phone] P: [phone]
--- NOTE | 2019-03-11 14:58 | NUR ---
NURSE NOTES: Received Call from Belén santos Gordo. Update provided re: patient status. Per Rn she will speak with doctor re: transfer. Will follow.
[2019-03-11 16:00] VITALS: BP 141/76
[2019-03-11] MEDS ORDERED: NS 275ml ONE (16:26)
--- NOTE | 2019-03-11 19:30 | NUR ---
NURSE NOTES: Received pt and report from REJI Banegas. Observed pt resting in bed with both eyes open and watching television. Pt is A/Ox3. 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 Pt also has a Moran present for urinary retention; patent and draining well. Bed is in the lowest position and locked. Call light and bedside table is within reach. No signs/symptoms of acute distress noted at this time. Will continue plan of care.
--- NOTE | 2019-03-11 19:42 | NUR ---
HAND-OFF: Report given to Gio Lofton. Plan of care endorsed.
[2019-03-11 20:00] VITALS: BP 144/80
[2019-03-11] MEDS ORDERED: Tamsulosin 0.4mg cap ORAL SCH (21:00)
[2019-03-12] VITALS: BP 152/80
--- NOTE | 2019-03-12 00:50 | NUR ---
NURSE NOTES: Found pt standing bedside with IVs pulled out. No bleeding noted. Moran was intact with blood flowing down from legs. Stopped bleeding, cleaned pt, and put pt back in bed. Dr. Funes made aware.
--- NOTE | 2019-03-12 01:30 | Progress Note ---
DATE: 03/11/2019 SUBJECTIVE: The patient anxiety. . White count within normal limits. MENTAL STATUS EXAMINATION: The patient is alert and oriented times self, place, and situation. Mood is anxious. Affect is constricted, congruent with mood. Thought process, linear and goal oriented. Thought content, no suicidal or homicidal ideation. . PLAN: 1. We will continue current medications. 2. Provide the patient with reality orientation and supportive therapy. Lino Devries M.D. DR: SHIRA JOB#: [id number] CC:
--- NOTE | 2019-03-12 01:35 | NUR ---
NURSE NOTES: Pt refused IV insertion. Attempted multiple times. Pt would agree, but then refuses when needle is about to be inserted. Dr Funes made aware.
--- NOTE | 2019-03-12 01:53 | NUR ---
NURSE NOTES: Pt became agitated and tried to get out of bed to leave multiple times. Pt stated, "I need to get out of here. My brother took my clothes." Called security to help pt back in bed.
[2019-03-12 04:00] VITALS: BP 152/93
[2019-03-12] MEDS: Vancomycin 1gm/D5W 275ml IVPB SCH ×4 (05:00→12:58)
--- NOTE | 2019-03-12 05:04 | NUR ---
NURSE NOTES: Unable to administer Vancomycin 1gm IVPB because pt refused IV insertion.
[2019-03-12] MEDS: Piperacillin/Tazobactam 3.375 GM in NS 110 ML IVPB SCH ×3 (06:00→22:08)
--- NOTE | 2019-03-12 06:05 | NUR ---
NURSE NOTES: Unable to administer Zosyn 3.375gm IVPB because pt refused IV insertion.
--- NOTE | 2019-03-12 06:08 | NUR ---
NURSE NOTES: Contacted Dr. Funes regarding Moran reinsertion and no IV access. Awaiting call back.
--- NOTE | 2019-03-12 07:00 | NUR ---
NURSE NOTES: Received orders from Dr. Stanley for reinsertion of Moran and Seroquel 50mg PO BID and Haldol 1mg IM Q4H PRN for agitation. Will note and carry out.
[2019-03-12] MEDS ORDERED: Haloperidol 5mg/ml Inj IM PRN ×2 (07:15→15:28)
--- NOTE | 2019-03-12 07:42 | NUR ---
HAND-OFF: Report given to REJI Banegas. Plan of care endorsed.
[2019-03-12 08:00] VITALS: BP 141/88
--- NOTE | 2019-03-12 08:01 | NUR ---
NURSE NOTES: Received patient from Gio Lofton. Patient is awake, following commands. Patient restless all night according to night Rn removed Moran and IV out. Bladder noted to e distended. Moran reinsert as ordered by MD without difficulty. 1200 of nancy urine came out. 22 gauge IV placed to right hand. Patient able to be redirected and reoriented to reality at this this. Fall precautions in placed. call faust within patients reached. staff alerted re: fall risk. will do frequent rounds and monitor patient throughout this shift.
[2019-03-12] MEDS: Thiamine 100mg tab ORAL SCH (08:19)
[2019-03-12] MEDS ORDERED: Heparin 5000 units/ml inj SUBQ SCH (09:00)
--- NOTE | 2019-03-12 11:54 | Internal Med Progress Note ---
Subjective Date of Service: Mar 12, 2019 Physician Name Reji Saucedo Attending Physician Brandin Funes MD Current Medications Medications (Trade) Dose Ordered Sig/Thi Route PRN Reason Start Time Stop Time Status Last Admin Dose Admin Acetaminophen (Tylenol) 650 mg Q6H PRN ORAL Mild Pain/Temp > 100.5 03/11/19 07:00 04/09/19 06:59 Dextrose/ Electrolytes 1,000 ml @ 75 mls/hr [id number] IV 03/11/19 10:30 04/09/19 10:29 03/11/19 11:17 Fluoxetine HCl (PROzac) 20 mg DAILY ORAL 03/11/19 09:00 04/09/19 16:59 03/12/19 08:19 Folic Acid (Folate) 1 mg DAILY ORAL 03/11/19 09:00 04/09/19 14:59 03/12/19 08:18 Haloperidol Lactate (Haldol) 1 mg Q4H PRN IM Agitation 03/12/19 07:15 04/11/19 07:14 03/12/19 10:29 Heparin Sodium (Porcine) (Heparin 5000 units/ml) 5,000 units EVERY 12 HOURS SUBQ 03/12/19 09:00 04/11/19 08:59 Lorazepam (Ativan) 2 mg Q6H PRN ORAL For Anxiety 03/11/19 07:00 03/17/19 06:59 03/12/19 01:56 Metoprolol Tartrate (Lopressor) 25 mg Q12HR ORAL 03/11/19 09:00 04/09/19 13:44 03/12/19 08:19 Piperacillin Sod/ Tazobactam Sod 3.375 gm/Sodium Chloride 110 ml @ 27.5 mls/hr Q8HR IVPB 03/11/19 14:00 03/17/19 13:59 03/11/19 22:39 Quetiapine Fumarate (SEROqueL) 50 mg BID ORAL 03/12/19 09:00 04/11/19 08:59 03/12/19 08:19 Tamsulosin HCl (Flomax) 0.4 mg QHS ORAL 03/11/19 21:00 04/09/19 20:59 03/11/19 21:17 Thiamine HCl (Vitamin B1) 100 mg DAILY ORAL 03/11/19 09:00 04/09/19 14:59 03/12/19 08:19 Vancomycin HCl (Vanco rx to dose) 1 ea DAILY PRN MISC Per rx protocol 03/11/19 09:00 04/09/19 07:44 Vancomycin HCl 1 gm/Dextrose 275 ml @ 183.708 mls/hr Q8H IVPB 03/11/19 13:00 03/16/19 12:59 03/11/19 21:18 Allergies: Coded Allergies: No Known Allergies (Unverified , 06/02/15) ROS Limited/Unobtainable: No Constitutional: Reports: no symptoms HEENT: Reports: no symptoms Cardiovascular: Reports: no symptoms Respiratory: Reports: no symptoms Gastrointestinal/Abdominal: Reports: no symptoms Genitourinary: Reports: no symptoms Neurologic/Psychiatric: Reports: no symptoms Subjective 64 YO M admitted with hypothermia and alcohol intoxication. Cover for Int Med- DR Funes Objective Last Vital Signs Date Time Temp Pulse Resp B/P (MAP) Pulse Ox O2 Delivery O2 Flow Rate FiO2 03/12/19 09:00 Room Air 03/12/19 08:19 106 141/88 03/12/19 08:00 98.1 18 95 Microbiology Date/Time Source Procedure Growth Status 03/09/19 23:05 Blood Blood Culture - Preliminary NO GROWTH AFTER 48 HOURS Resulted 03/09/19 22:50 Blood Blood Culture - Preliminary NO GROWTH AFTER 48 HOURS Resulted 03/10/19 00:00 Nasal Nares MRSA Culture - Final NO METHICILLIN RESISTANT STAPH AUREUS... Complete 03/09/19 23:55 Nose - Final Complete 03/09/19 23:55 Nose - Final Complete 03/10/19 00:00 Rectum - Final NO CARBAPENEM-RESISTANT ENTEROBACTERI... Complete 03/10/19 00:00 Rectum VRE Culture - Final NO VANCOMYCIN RESISTANT ENTEROCOCCUS ... Complete Intake and Output 03/11/19 03/12/19 19:00 07:00 Intake Total 75 ml 1037.416 ml Output Total 1700 ml 1200 ml Balance -1625 ml -162.584 ml Intake Oral 240 ml IV Total 75 ml 797.416 ml Output Urine Total 1700 ml 1200 ml # Voids 3 Objective Objective GENERAL: The patient is awake, responsive, no acute distress. HEAD AND NECK: Pupils are reactive to light. Extraocular movements intact. Neck was supple. No JVD. LUNGS: Good air entry with no wheezing or rales. HEART: S1, S2. Tachycardic. No murmur or gallops. ABDOMEN: Soft, nondistended, nontender, and morbidly obese. EXTREMITIES: No cyanosis or clubbing. +1 edema. The patient has a blister on lower extremity. NEUROLOGIC: Cranial nerves II through XII grossly intact. The patient is moving all extremities. RECTAL: Refused and deferred. GENITOURINARY: Moran cath PSYCHIATRIC: Mood and affect is intact. Assessment/Plan Assessment/Plan Assessment/Plan Assessment/Plan ASSESSMENT: 1. Sepsis, lactic acidosis. 2. Tachycardia. Improved 3. Dehydration. 4. Alcohol abuse. 5. Hypothermia. Resolved 6. Hyponatremia. 7. Hypomagnesemia. 8. Urinary retention. PLAN: 1. in Monitor Unit 2. We will follow up laboratory. 3. Follow up with cultures. 4. Code status is Full Code. 5. DVT prophylaxis. 6. Heparin subcutaneous. 7. Broad-spectrum antibiotics with vancomycin and Zosyn. 8. Start on Flomax 9. 2D echo. Reji Saucedo MD Mar 12, 2019 11:54
[2019-03-12 12:00] VITALS: BP 149/84
--- NOTE | 2019-03-12 12:00 | NUR ---
NURSE NOTES: Dr. Devries updated re: patients status. New order received. Patient given with PRN Haldol with positive result. Patient resting comfortably art this time. will follow.
[2019-03-12] MEDS ORDERED: chlordiazePOXIDE 25mg Cap ORAL SCH (13:00)
[2019-03-12] MEDS: D5 1/2NS w/KCl 20mEq 1,000 ML IV SCH ×2 (13:00→17:29)
[2019-03-12] MEDS ORDERED: LORazepam 1mg tab ORAL PRN (15:29)
--- NOTE | 2019-03-12 15:43 | NUR ---
TRANSFER TO FLOOR: Patient transferred to Room 410-[address] Stanley's ORder. Report given to Gio Hanna .Patient stable, awake and alert. Belongings (mendieta) with patient during transfer.
--- NOTE | 2019-03-12 15:50 | NUR ---
Received report from Cristiana RN/Tel, pt awake, A/O x2. forgetful, on and off confused, soto in place, draining clear yellow urine, IVF infusing/abx, pt with skin tears on elbows, knees, Vasyl LE, dressings on. call light within reach, bed in low position, bed alarm on, fall precaution maintained. will continue to monitor.
--- NOTE | 2019-03-12 15:54 | Cardiac Electrophysiology PN ---
Assessment/Plan Assessment/Plan 1. Sinus tachycardia due to alcohol withdrawal. Heart rate is improved. There is no evidence of SVT or atrial fibrillation. 2. Hypertension. Continue metoprolol 25 mg b.i.d. 3. Sepsis, on IV antibiotics. 4. Heavy alcohol use, on thiamine and folate. Transfer to [facility]. Transfer to [place] pending Subjective Subjective Remained in SR. Awaiting [place] transfer. No CP or SOB. Will transfer to [facility] Objective Last 24 Hour Vital Signs Date Time Temp Pulse Resp B/P (MAP) Pulse Ox O2 Delivery O2 Flow Rate FiO2 03/12/19 12:00 97.7 96 20 149/84 (105) 96 03/12/19 12:00 89 03/12/19 09:00 Room Air 03/12/19 08:19 106 141/88 03/12/19 08:00 115 03/12/19 08:00 98.1 106 18 141/88 (105) 95 03/12/19 04:00 97.9 99 20 152/93 (112) 96 03/12/19 03:55 108 03/12/19 00:00 78 03/12/19 00:00 97.9 77 20 152/80 (104) 98 03/11/19 21:17 87 144/80 03/11/19 21:00 Room Air 03/11/19 20:00 89 03/11/19 20:00 98.0 87 20 144/80 (101) 98 03/11/19 16:00 98.1 83 20 141/76 (97) 96 03/11/19 16:00 Room Air 03/11/19 16:00 88 Intake and Output 03/11/19 03/12/19 19:00 07:00 Intake Total 75 ml 1037.416 ml Output Total 1700 ml 1200 ml Balance -1625 ml -162.584 ml Intake Oral 240 ml IV Total 75 ml 797.416 ml Output Urine Total 1700 ml 1200 ml # Voids 3 Laboratory Tests Test 03/12/19 12:00 Vancomycin Level Trough 10.2 ug/mL (5.0-12.0) Microbiology Date/Time Source Procedure Growth Status 03/09/19 23:05 Blood Blood Culture - Preliminary NO GROWTH AFTER 48 HOURS Resulted 03/09/19 22:50 Blood Blood Culture - Preliminary NO GROWTH AFTER 48 HOURS Resulted 03/10/19 00:00 Nasal Nares MRSA Culture - Final NO METHICILLIN RESISTANT STAPH AUREUS... Complete 03/09/19 23:55 Nose - Final Complete 03/09/19 23:55 Nose - Final Complete 03/10/19 00:00 Rectum - Final NO CARBAPENEM-RESISTANT ENTEROBACTERI... Complete 03/10/19 00:00 Rectum VRE Culture - Final NO VANCOMYCIN RESISTANT ENTEROCOCCUS ... Complete Objective HEAD AND NECK: Showed no JVD. LUNGS: Clear. CARDIOVASCULAR: Nl S1 and S2 with no gallop or murmur. ABDOMEN: Soft. EXTREMITIES: No pitting edema. Yevgeniy Rondon MD Mar 12, 2019 15:54
[2019-03-12 16:00] VITALS: BP 137/77
[2019-03-12] MEDS: chlordiazePOXIDE 25mg Cap ORAL SCH (17:26)
--- NOTE | 2019-03-12 19:55 | NUR ---
NURSE NOTES: Received patient in bed, awake, alert, oriented x2/3, forgetful at times, patient has Moran catheter [address], draining well. IV site is clean dry and intact, call light is within reach, bed is lowered, locked and alarm is on. Will continue to monitor for comfort and safety.
[2019-03-12 20:00] VITALS: BP 140/74
[2019-03-12] MEDS: Tamsulosin 0.4mg cap ORAL SCH (20:30)
[2019-03-12] MEDS: Vancomycin 1 GM in D5W 275 ML IVPB SCH (20:30)
[2019-03-12] MEDS: Heparin 5000 units/ml inj SUBQ SCH (20:31)
[2019-03-13] VITALS: BP 146/81
[2019-03-13 04:00] VITALS: BP 149/79
[2019-03-13] MEDS: D5 1/2NS w/KCl 20mEq 1,000 ML IV SCH ×2 (04:10→18:10)
[2019-03-13] MEDS: Vancomycin 1 GM in D5W 275 ML IVPB SCH ×3 (04:11→20:44)
[2019-03-13] MEDS: Piperacillin/Tazobactam 3.375 GM in NS 110 ML IVPB SCH ×2 (05:17→15:08)
--- NOTE | 2019-03-13 07:22 | NUR ---
HAND-OFF: Report given to Cyndi MENDOZA.
--- NOTE | 2019-03-13 07:58 | NUR ---
pt awake, A/O x 2-3, forgetful, denies pain, no SOB noted, soto in place, draining clear yellow urine, no clots , no bleeding. IVF infusing, tolerating diet well, no n/v. call light within reach, bed in low position, bed alarm on, fall precaution maintained. will continue to monitor.
[2019-03-13 08:00] VITALS: BP 154/81
[2019-03-13] MEDS: Thiamine 100mg tab ORAL SCH (08:28)
[2019-03-13] MEDS: chlordiazePOXIDE 25mg Cap ORAL SCH ×3 (08:28→17:12)
[2019-03-13] MEDS: Heparin 5000 units/ml inj SUBQ SCH ×2 (08:39→20:45)
[2019-03-13 11:56] VITALS: BP 125/57
--- NOTE | 2019-03-13 12:27 | Internal Med Progress Note ---
Subjective Date of Service: Mar 13, 2019 Physician Name Reji Saucedo Attending Physician Brandin Funes MD Current Medications Medications (Trade) Dose Ordered Sig/Thi Route PRN Reason Start Time Stop Time Status Last Admin Dose Admin Acetaminophen (Tylenol) 650 mg Q6H PRN ORAL Mild Pain/Temp > 100.5 03/12/19 15:28 04/11/19 15:27 Chlordiazepoxide (Librium) 50 mg TID ORAL 03/12/19 18:00 03/19/19 12:59 03/13/19 08:28 Dextrose/ Electrolytes 1,000 ml @ 75 mls/hr [id number] IV 03/12/19 15:30 04/09/19 10:29 03/13/19 04:10 Fluoxetine HCl (PROzac) 20 mg DAILY ORAL 03/13/19 09:00 04/09/19 16:59 03/13/19 08:27 Folic Acid (Folate) 1 mg DAILY ORAL 03/13/19 09:00 04/09/19 14:59 03/13/19 08:28 Haloperidol Lactate (Haldol) 1 mg Q4H PRN IM Agitation 03/12/19 15:28 04/11/19 15:27 Heparin Sodium (Porcine) (Heparin 5000 units/ml) 5,000 units EVERY 12 HOURS SUBQ 03/12/19 21:00 04/11/19 08:59 Lorazepam (Ativan) 2 mg Q6H PRN ORAL For Anxiety 03/12/19 15:29 03/19/19 15:28 Metoprolol Tartrate (Lopressor) 25 mg Q12HR ORAL 03/12/19 21:00 04/09/19 13:44 03/13/19 08:31 Piperacillin Sod/ Tazobactam Sod 3.375 gm/Dextrose 110 ml @ 27.5 mls/hr Q8HR IVPB 03/13/19 22:00 03/20/19 21:59 Piperacillin Sod/ Tazobactam Sod 3.375 gm/Sodium Chloride 110 ml @ 27.5 mls/hr Q8HR IVPB 03/12/19 22:00 03/13/19 17:59 03/13/19 05:17 Quetiapine Fumarate (SEROqueL) 50 mg BID ORAL 03/12/19 18:00 1/27/20 08:59 03/13/19 08:26 Tamsulosin HCl (Flomax) 0.4 mg QHS ORAL 03/12/19 21:00 04/09/19 20:59 03/12/19 20:30 Thiamine HCl (Vitamin B1) 100 mg DAILY ORAL 03/13/19 09:00 04/09/19 14:59 03/13/19 08:28 Vancomycin HCl (Vanco rx to dose) 1 ea DAILY PRN MISC Per rx protocol 03/13/19 09:00 04/09/19 07:44 Vancomycin HCl 1 gm/Dextrose 275 ml @ 183.708 mls/hr Q8H IVPB 03/12/19 21:00 03/16/19 12:59 03/13/19 04:11 Allergies: Coded Allergies: No Known Allergies (Unverified , 06/02/15) ROS Limited/Unobtainable: No Constitutional: Reports: no symptoms HEENT: Reports: no symptoms Cardiovascular: Reports: no symptoms Respiratory: Reports: no symptoms Gastrointestinal/Abdominal: Reports: no symptoms Genitourinary: Reports: no symptoms Neurologic/Psychiatric: Reports: no symptoms Subjective 64 YO M admitted with hypothermia and alcohol intoxication. Cover for Int Med- DR Funes Objective Last Vital Signs Date Time Temp Pulse Resp B/P (MAP) Pulse Ox O2 Delivery O2 Flow Rate FiO2 03/13/19 11:56 98.0 76 19 125/57 (79) 98 03/13/19 09:45 Room Air Laboratory Tests Test 03/13/19 11:41 Vancomycin Level Trough Pending Intake and Output 03/12/19 03/13/19 19:00 07:00 Intake Total 860 ml Output Total 3350 ml 1400 ml Balance -2490 ml -1400 ml Intake Oral 860 ml Output Urine Total 3350 ml 1400 ml Objective Objective GENERAL: The patient is awake, responsive, no acute distress. HEAD AND NECK: Pupils are reactive to light. Extraocular movements intact. Neck was supple. No JVD. LUNGS: Good air entry with no wheezing or rales. HEART: S1, S2. Tachycardic. No murmur or gallops. ABDOMEN: Soft, nondistended, nontender, and morbidly obese. EXTREMITIES: No cyanosis or clubbing. +1 edema. The patient has a blister on lower extremity. NEUROLOGIC: Cranial nerves II through XII grossly intact. The patient is moving all extremities. RECTAL: Refused and deferred. GENITOURINARY: Moran cath PSYCHIATRIC: Mood and affect is intact. Assessment/Plan Assessment/Plan Assessment/Plan Assessment/Plan ASSESSMENT: 1. Sepsis, lactic acidosis. 2. Tachycardia. Improved 3. Dehydration. 4. Alcohol abuse. 5. Hypothermia. Resolved 6. Hyponatremia. 7. Hypomagnesemia. 8. Urinary retention. PLAN: 1. in Monitor Unit 2. We will follow up laboratory. 3. Follow up with cultures. 4. Code status is Full Code. 5. DVT prophylaxis. 6. Heparin subcutaneous. 7. Broad-spectrum antibiotics with vancomycin and Zosyn. 8. Start on Flomax 9. 2D echo. 10. Discharge planning Reji Saucedo MD Mar 13, 2019 12:27
--- NOTE | 2019-03-13 15:06 | Cardiac Electrophysiology PN ---
Assessment/Plan Assessment/Plan 1. Sinus tachycardia due to alcohol withdrawal. There is no evidence of SVT or atrial fibrillation. Resolved 2. Hypertension. Continue metoprolol 25 mg b.i.d. 3. Sepsis, on IV antibiotics. 4. Heavy alcohol use, on thiamine and folate. Transfer to [place] pending Subjective Subjective Transferred to [facility]. Awaiting [place] transfer. No CP or SOB. Objective Last 24 Hour Vital Signs Date Time Temp Pulse Resp B/P (MAP) Pulse Ox O2 Delivery O2 Flow Rate FiO2 03/13/19 11:56 98.0 76 19 125/57 (79) 98 03/13/19 09:45 Room Air 03/13/19 08:31 91 154/81 03/13/19 08:00 98.8 91 18 154/81 (105) 96 03/13/19 04:00 96.4 64 16 149/79 (102) 97 03/13/19 00:00 99.1 82 16 146/81 (102) 03/12/19 21:51 Room Air 03/12/19 20:30 78 149/78 03/12/19 20:00 98.7 86 18 140/74 (96) 97 03/12/19 16:00 98.9 83 21 137/77 (97) 97 Intake and Output 03/12/19 03/13/19 19:00 07:00 Intake Total 860 ml Output Total 3350 ml 1400 ml Balance -2490 ml -1400 ml Intake Oral 860 ml Output Urine Total 3350 ml 1400 ml Laboratory Tests Test 03/13/19 11:41 Vancomycin Level Trough 11.3 ug/mL (5.0-12.0) Objective HEAD AND NECK: Showed no JVD. LUNGS: Clear. CARDIOVASCULAR: Nl S1 and S2 with no gallop or murmur. ABDOMEN: Soft. EXTREMITIES: No pitting edema. Yevgeniy Rondon MD Mar 13, 2019 15:06
--- NOTE | 2019-03-13 15:26 | NUR ---
Pts brother's cell (Nitesh Gaitan),# [phone].
[2019-03-13 16:00] VITALS: BP 121/66
--- NOTE | 2019-03-13 19:29 | NUR ---
NURSE NOTES: Received patient in bed, asleep, IV site is clean dry and intact,no acute distress noted, call light is within reach, bed is lowered, locked, alarm is on. Will continue to monitor for comfort and safety.
[2019-03-13 20:00] VITALS: BP 133/79
--- NOTE | 2019-03-13 20:15 | Progress Note ---
DATE: 03/12/2019 SUBJECTIVE: The patient was seen yesterday, 03/12/2019. The patient is doing better, much improved. Less anxiety. Tolerating medication. No side effects from medications. less Ativan as needed. MENTAL STATUS EXAMINATION: Alert and oriented times self, place, and situation. Mood is anxious. Affect is constricted. Congruent with mood. Thought process is concrete. Thought content, no suicidal or homicidal ideation. ASSESSMENT: 1. Major depressive disorder. 2. Alcohol dependence. 3. Alcohol withdrawal. PLAN: 1. Continue folate. Continue thiamine. Continue the fluoxetine. Continue Seroquel 50 twice a day. 2. Provide the patient with reality orientation and supportive therapy. Lino Devries M.D. DR: SHIRA JOB#: [id number] CC:
[2019-03-13] MEDS: Tamsulosin 0.4mg cap ORAL SCH (20:44)
[2019-03-13] MEDS: Piperacillin/Tazobactam 3.375 GM in D5W 110 ML IVPB SCH (22:00)
[2019-03-13] MEDS ORDERED: Piperacillin/Tazobactam 3.375 GM in D5W 110 ML IVPB SCH (22:00)
[2019-03-14 00:15] VITALS: BP 141/96
[2019-03-14 04:00] VITALS: BP 140/94
[2019-03-14 04:56] LABS: HEMATOCRIT 40.6 % (42.0-52.0); HEMOGLOBIN 13.3 G/DL (14.2-18.0); MEAN CORPUSCULAR VOLUME 115 FL (80-99); PLATELET COUNT 105 K/UL (150-450); RED BLOOD COUNT 3.52 M/UL (4.70-6.10); RED CELL DISTRIBUTION WIDTH 12.9 % (11.6-14.8)
[2019-03-14 04:58] LABS: ANION GAP 5 mmol/L (5-15); BLOOD UREA NITROGEN 12 mg/dL (7-18); CARBON DIOXIDE 29 MMOL/L (21-32); CHLORIDE 108 MMOL/L (98-107); CREATININE 1.1 MG/DL (0.55-1.30); POTASSIUM 3.3 MMOL/L (3.5-5.1); SODIUM 142 MMOL/L (136-145)
[2019-03-14] MEDS: Piperacillin/Tazobactam 3.375 GM in D5W 110 ML IVPB SCH ×3 (05:27→22:36)
[2019-03-14] MEDS: D5 1/2NS w/KCl 20mEq 1,000 ML IV SCH ×2 (05:30→22:23)
--- NOTE | 2019-03-14 07:45 | NUR ---
NURSE NOTES: Received patient on bed, asleep. IV site intact and patent. Moran catheter intact and patent. Bed in low and locked position,c all light in reach. No signs of respiratory distress or pain. Room board updated, will continue to monitor.
[2019-03-14 08:00] VITALS: BP 170/98
[2019-03-14] MEDS ORDERED: Vancomycin 1.5gm/D5W 275ml IVPB SCH ×2 (08:00)
[2019-03-14] MEDS: chlordiazePOXIDE 25mg Cap ORAL SCH ×3 (09:15→18:20)
[2019-03-14] MEDS: Vancomycin 1.5gm/NS Premix 275 ML IVPB SCH ×2 (09:15→18:20)
[2019-03-14] MEDS: Thiamine 100mg tab ORAL SCH (09:15)
[2019-03-14] MEDS: Heparin 5000 units/ml inj SUBQ SCH ×2 (09:30→22:28)
--- NOTE | 2019-03-14 09:40 | NUR ---
PT EVALUATION NOTE Patient seen for initial evaluation. Patient presents with generalized weakness and impaired balance which affects patient's ability to perform mobility tasks. Patient requires mod assist for bed mobility and transfers with FWW. Patient very unsteady in standing, only able to take a few small side steps with FWW and mod assist. Patient unable to ambulate at this time. Patient will benefit from skilled inpatient PT intervention to address strength, balance and safety for improved level of functional mobility. Recommend discharge to SNF for further rehab once medically cleared by MD. Recommend FWW for safe ambulation. Addendum: 03/14/19 at 1222 by AIDE GIL PT Amended: Links added.
--- NOTE | 2019-03-14 09:59 | NUR ---
NURSE NOTES: Patient refused stool softeners and heparin scheduled medications. Risks versus benefits explained. Addendum: 03/14/19 at 1001 by WILLI BASURTO RN RN Disregard previous note. Entered in error.
[2019-03-14 12:00] VITALS: BP 145/76
--- NOTE | 2019-03-14 13:17 | Internal Med Progress Note ---
Subjective Date of Service: Mar 14, 2019 Physician Name Reji Saucedo Attending Physician Brandin Funes MD Current Medications Medications (Trade) Dose Ordered Sig/Thi Route PRN Reason Start Time Stop Time Status Last Admin Dose Admin Acetaminophen (Tylenol) 650 mg Q6H PRN ORAL Mild Pain/Temp > 100.5 03/12/19 15:28 04/11/19 15:27 Chlordiazepoxide (Librium) 50 mg TID ORAL 03/12/19 18:00 03/19/19 12:59 03/14/19 09:15 Dextrose/ Electrolytes 1,000 ml @ 75 mls/hr [id number] IV 03/12/19 15:30 04/09/19 10:29 03/14/19 05:30 Fluoxetine HCl (PROzac) 20 mg DAILY ORAL 03/13/19 09:00 04/09/19 16:59 03/14/19 09:15 Folic Acid (Folate) 1 mg DAILY ORAL 03/13/19 09:00 04/09/19 14:59 03/14/19 09:15 Haloperidol Lactate (Haldol) 1 mg Q4H PRN IM Agitation 03/12/19 15:28 04/11/19 15:27 Heparin Sodium (Porcine) (Heparin 5000 units/ml) 5,000 units EVERY 12 HOURS SUBQ 03/12/19 21:00 04/11/19 08:59 Lorazepam (Ativan) 2 mg Q6H PRN ORAL For Anxiety 03/12/19 15:29 03/19/19 15:28 03/14/19 04:59 Metoprolol Tartrate (Lopressor) 25 mg Q12HR ORAL 03/12/19 21:00 04/09/19 13:44 03/14/19 09:15 Piperacillin Sod/ Tazobactam Sod 3.375 gm/Dextrose 110 ml @ 27.5 mls/hr Q8HR IVPB 03/13/19 22:00 03/20/19 21:59 03/14/19 05:27 Quetiapine Fumarate (SEROqueL) 50 mg BID ORAL 03/12/19 18:00 04/11/19 08:59 03/14/19 09:15 Tamsulosin HCl (Flomax) 0.4 mg QHS ORAL 03/12/19 21:00 1/25/20 20:59 03/13/19 20:44 Thiamine HCl (Vitamin B1) 100 mg DAILY ORAL 03/13/19 09:00 04/09/19 14:59 03/14/19 09:15 Vancomycin HCl (Vanco rx to dose) 1 ea DAILY PRN MISC Per rx protocol 03/13/19 09:00 04/09/19 07:44 Vancomycin/Sodium Chloride 275 ml @ 137.5 mls/ hr Q8H IVPB 03/14/19 09:00 03/19/19 08:59 03/14/19 09:15 Allergies: Coded Allergies: No Known Allergies (Unverified , 06/02/15) ROS Limited/Unobtainable: No Constitutional: Reports: no symptoms HEENT: Reports: no symptoms Cardiovascular: Reports: no symptoms Respiratory: Reports: no symptoms Gastrointestinal/Abdominal: Reports: no symptoms Genitourinary: Reports: no symptoms Neurologic/Psychiatric: Reports: no symptoms Subjective 64 YO M admitted with hypothermia and alcohol intoxication. Cover for [facility] Med- DR Funes. Await transfer to [facility] Last Vital Signs Date Time Temp Pulse Resp B/P (MAP) Pulse Ox O2 Delivery O2 Flow Rate FiO2 03/14/19 12:00 98.1 73 18 145/76 (99) 96 03/14/19 09:00 Room Air Laboratory Tests Test 03/14/19 04:10 White Blood Count 6.0 K/UL (4.8-10.8) Red Blood Count 3.52 M/UL (4.70-6.10) L Hemoglobin 13.3 G/DL (14.2-18.0) L Hematocrit 40.6 % (42.0-52.0) L Mean Corpuscular Volume 115 FL (80-99) H Mean Corpuscular Hemoglobin 37.9 PG (27.0-31.0) H Mean Corpuscular Hemoglobin Concent 32.8 G/DL (32.0-36.0) Red Cell Distribution Width 12.9 % (11.6-14.8) Platelet Count 105 K/UL (150-450) L Mean Platelet Volume 8.2 FL (6.5-10.1) Neutrophils (%) (Auto) % (45.0-75.0) Lymphocytes (%) (Auto) % (20.0-45.0) Monocytes (%) (Auto) % (1.0-10.0) Eosinophils (%) (Auto) % (0.0-3.0) Basophils (%) (Auto) % (0.0-2.0) Differential Total Cells Counted 100 Neutrophils % (Manual) 69 % (45-75) Lymphocytes % (Manual) 26 % (20-45) Monocytes % (Manual) 3 % (1-10) Eosinophils % (Manual) 2 % (0-3) Basophils % (Manual) 0 % (0-2) Band Neutrophils 0 % (0-8) Platelet Estimate Decreased L Platelet Morphology Normal Polychromasia 1+ Macrocytosis 1+ Sodium Level 142 MMOL/L (136-145) Potassium Level 3.3 MMOL/L (3.5-5.1) L Chloride Level 108 MMOL/L (98-107) H Carbon Dioxide Level 29 MMOL/L (21-32) Anion Gap 5 mmol/L (5-15) Blood Urea Nitrogen 12 mg/dL (7-18) Creatinine 1.1 MG/DL (0.55-1.30) Estimat Glomerular Filtration Rate > 60 mL/min (>60) Glucose Level 100 MG/DL (74-106) Calcium Level 8.0 MG/DL (8.5-10.1) L Vancomycin Level Trough 6.4 ug/mL (5.0-12.0) Intake and Output 03/13/19 03/14/19 19:00 07:00 Intake Total 1167.416 ml 720 ml Output Total 1100 ml 3000 ml Balance 67.416 ml -2280 ml Intake Oral 800 ml 720 ml IV Total 367.416 ml Output Urine Total 1100 ml 3000 ml # Voids 1 Objective Objective GENERAL: The patient is awake, responsive, no acute distress. HEAD AND NECK: Pupils are reactive to light. Extraocular movements intact. Neck was supple. No JVD. LUNGS: Good air entry with no wheezing or rales. HEART: S1, S2. Tachycardic. No murmur or gallops. ABDOMEN: Soft, nondistended, nontender, and morbidly obese. EXTREMITIES: No cyanosis or clubbing. +1 edema. The patient has a blister on lower extremity. NEUROLOGIC: Cranial nerves II through XII grossly intact. The patient is moving all extremities. RECTAL: Refused and deferred. GENITOURINARY: Moran cath PSYCHIATRIC: Mood and affect is intact. Assessment/Plan Assessment/Plan Assessment/Plan Assessment/Plan ASSESSMENT: 1. Sepsis, lactic acidosis. 2. Tachycardia. Improved 3. Dehydration. 4. Alcohol abuse. 5. Hypothermia. Resolved 6. Hyponatremia. 7. Hypomagnesemia. 8. Urinary retention. PLAN: 1. in Monitor Unit 2. We will follow up laboratory. 3. Follow up with cultures. 4. Code status is Full Code. 5. DVT prophylaxis. 6. Heparin subcutaneous. 7. Broad-spectrum antibiotics with vancomycin and Zosyn. 8. Start on Flomax 9. 2D echo. 10. Discharge planning-transfer to [place] Reji Saucedo MD Mar 14, 2019 13:17
--- NOTE | 2019-03-14 15:08 | NUR ---
CASE MANAGEMENT:REVIEW 03/14/19 SI;SEPSIS 96.4 93 12 170/98 95% RA AST 181 IS;ZOSYN IV Q8 HR VANCO IV Q8 HR MED SURG STATUS
--- NOTE | 2019-03-14 15:33 | NUR ---
CASE MANAGEMENT:REVIEW 03/12/19 SI;SEPSIS 97.7 115 21 152/93 95% RA AST 181 2.1 IS;ZOSYN IV Q8 HR VANCO IV Q8 HR MED SURG STATUS 03/13/19 SI;SEPSIS 97.2 82 18 170/98 95% RA AST 181 2.1 IS;ZOSYN IV Q8 HR VANCO IV Q8 HR MED SURG STATUS
[2019-03-14 16:00] VITALS: BP 152/76
--- NOTE | 2019-03-14 16:20 | NUR ---
*-* INSURANCE *-* UPDATED CLINICALS HAVE BEEN FAXED TO: [facility] (JONH) BARB:KEN REF# [id number] OR [id number] P: [phone] DIRECT TO [facility] F: [phone] P: [phone]
--- NOTE | 2019-03-14 16:36 | Cardiac Electrophysiology PN ---
Assessment/Plan Assessment/Plan 1. Sinus tachycardia due to alcohol withdrawal. No evidence of SVT or atrial fibrillation. 2. Hypertension. Continue metoprolol 25 mg b.i.d. 3. Sepsis, on IV antibiotics. 4. Heavy alcohol use, on thiamine and folate. Transfer to [place] pending Subjective Subjective Awaiting [place] transfer. No CP or SOB. RN at bedside Objective Last 24 Hour Vital Signs Date Time Temp Pulse Resp B/P (MAP) Pulse Ox O2 Delivery O2 Flow Rate FiO2 03/14/19 12:00 98.1 73 18 145/76 (99) 96 03/14/19 09:15 75 170/98 03/14/19 09:00 Room Air 03/14/19 08:00 98.3 75 18 170/98 (122) 95 03/14/19 04:00 97.5 67 18 140/94 (109) 97 03/14/19 00:15 97.2 82 18 141/96 (111) 98 03/13/19 21:12 Room Air 03/13/19 20:45 80 133/79 03/13/19 20:00 97.5 80 12 133/79 (97) 98 Intake and Output 03/13/19 03/14/19 19:00 07:00 Intake Total 1167.416 ml 720 ml Output Total 1100 ml 3000 ml Balance 67.416 ml -2280 ml Intake Oral 800 ml 720 ml IV Total 367.416 ml Output Urine Total 1100 ml 3000 ml # Voids 1 Laboratory Tests Test 03/14/19 04:10 White Blood Count 6.0 K/UL (4.8-10.8) Red Blood Count 3.52 M/UL (4.70-6.10) L Hemoglobin 13.3 G/DL (14.2-18.0) L Hematocrit 40.6 % (42.0-52.0) L Mean Corpuscular Volume 115 FL (80-99) H Mean Corpuscular Hemoglobin 37.9 PG (27.0-31.0) H Mean Corpuscular Hemoglobin Concent 32.8 G/DL (32.0-36.0) Red Cell Distribution Width 12.9 % (11.6-14.8) Platelet Count 105 K/UL (150-450) L Mean Platelet Volume 8.2 FL (6.5-10.1) Neutrophils (%) (Auto) % (45.0-75.0) Lymphocytes (%) (Auto) % (20.0-45.0) Monocytes (%) (Auto) % (1.0-10.0) Eosinophils (%) (Auto) % (0.0-3.0) Basophils (%) (Auto) % (0.0-2.0) Differential Total Cells Counted 100 Neutrophils % (Manual) 69 % (45-75) Lymphocytes % (Manual) 26 % (20-45) Monocytes % (Manual) 3 % (1-10) Eosinophils % (Manual) 2 % (0-3) Basophils % (Manual) 0 % (0-2) Band Neutrophils 0 % (0-8) Platelet Estimate Decreased L Platelet Morphology Normal Polychromasia 1+ Macrocytosis 1+ Sodium Level 142 MMOL/L (136-145) Potassium Level 3.3 MMOL/L (3.5-5.1) L Chloride Level 108 MMOL/L (98-107) H Carbon Dioxide Level 29 MMOL/L (21-32) Anion Gap 5 mmol/L (5-15) Blood Urea Nitrogen 12 mg/dL (7-18) Creatinine 1.1 MG/DL (0.55-1.30) Estimat Glomerular Filtration Rate > 60 mL/min (>60) Glucose Level 100 MG/DL (74-106) Calcium Level 8.0 MG/DL (8.5-10.1) L Vancomycin Level Trough 6.4 ug/mL (5.0-12.0) Objective HEAD AND NECK: No JVD. LUNGS: Clear. CARDIOVASCULAR: Nl S1 and S2 with no gallop or murmur. ABDOMEN: Soft. EXTREMITIES: No pitting edema. Yevgeniy Rondon MD Mar 14, 2019 16:36
--- NOTE | 2019-03-14 19:33 | NUR ---
HAND-OFF: Report given to REJI Johnson.
--- NOTE | 2019-03-14 19:48 | NUR ---
NURSE NOTES: Pt. received from REJI Whyte. Pt. asleep in bed, on room air, no signs of pain or respiratory distress. IV site left AC 22g running fluids, intact and patent. Bed is low and locked, side rails x2 are up, bed alarm active, and call light is in reach. Will continue to monitor.
[2019-03-14 20:00] VITALS: BP 133/80
[2019-03-14] MEDS: Tamsulosin 0.4mg cap ORAL SCH (22:23)
[2019-03-15] VITALS (7 sets, daily range): BP systolic 135–162; BP diastolic 89–95
[2019-03-15] MEDS: Vancomycin 1.5gm/NS Premix 275 ML IVPB SCH ×2 (03:29→09:47)
[2019-03-15] MEDS: Piperacillin/Tazobactam 3.375 GM in D5W 110 ML IVPB SCH ×3 (05:32→22:00)
--- NOTE | 2019-03-15 07:27 | NUR ---
HAND-OFF: Report given to REJI Whyte.
--- NOTE | 2019-03-15 07:40 | NUR ---
NURSE NOTES: Received patient on bed, asleep. IV site intact and patent. Bed in low and locked position, call light in reach. Moran catheter intact and patent. No signs of respiratory distress or pain. Room board updated, will continue to monitor.
[2019-03-15 09:45] LABS: ANION GAP 7 mmol/L (5-15); BLOOD UREA NITROGEN 15 mg/dL (7-18); CALCIUM 8.2 MG/DL (8.5-10.1); CARBON DIOXIDE 29 MMOL/L (21-32); CHLORIDE 113 MMOL/L (98-107); CREATININE 1.1 MG/DL (0.55-1.30); SODIUM 149 MMOL/L (136-145)
[2019-03-15] MEDS: chlordiazePOXIDE 25mg Cap ORAL SCH ×3 (09:47→17:35)
[2019-03-15] MEDS: Thiamine 100mg tab ORAL SCH (09:48)
[2019-03-15 10:00] LABS: HEMATOCRIT 41.2 % (42.0-52.0); HEMOGLOBIN 13.2 G/DL (14.2-18.0); MEAN CORPUSCULAR VOLUME 117 FL (80-99); PLATELET COUNT 127 K/UL (150-450); RED BLOOD COUNT 3.54 M/UL (4.70-6.10); RED CELL DISTRIBUTION WIDTH 12.9 % (11.6-14.8); WHITE BLOOD COUNT 6.6 K/UL (4.8-10.8)
--- NOTE | 2019-03-15 10:15 | NUR ---
CASE MANAGEMENT:REVIEW 03/15/19 SI;SEPSIS 98.7 91 20 162/93 96% RA NA 149 K 113 IS;VANCO IV Q8 HR ZOSYN IV Q8 HR HEPARIN SUBC Q12 HR MED SURG STATUS
--- NOTE | 2019-03-15 11:59 | NUR ---
*-* INSURANCE *-* UPDATED CLINICALS HAVE BEEN FAXED TO: [facility] (JONH) BARB:KEN REF# [id number] P: [phone] DIRECT TO [facility] F: [phone]
[2019-03-15] MEDS: D5 1/2NS w/KCl 20mEq 1,000 ML IV SCH ×2 (13:21→23:30)
[2019-03-15] MEDS: Heparin 5000 units/ml inj SUBQ SCH ×2 (13:23→21:00)
--- NOTE | 2019-03-15 14:20 | Internal Med Progress Note ---
Subjective Date of Service: Mar 15, 2019 Physician Name Reji Saucedo Attending Physician Brandin Funes MD Current Medications Medications (Trade) Dose Ordered Sig/Thi Route PRN Reason Start Time Stop Time Status Last Admin Dose Admin Acetaminophen (Tylenol) 650 mg Q6H PRN ORAL Mild Pain/Temp > 100.5 03/12/19 15:28 04/11/19 15:27 Chlordiazepoxide (Librium) 50 mg TID ORAL 03/12/19 18:00 03/19/19 12:59 03/15/19 13:22 Dextrose/ Electrolytes 1,000 ml @ 75 mls/hr [id number] IV 03/12/19 15:30 04/09/19 10:29 03/15/19 13:21 Fluoxetine HCl (PROzac) 20 mg DAILY ORAL 03/13/19 09:00 04/09/19 16:59 03/15/19 09:48 Folic Acid (Folate) 1 mg DAILY ORAL 03/13/19 09:00 04/09/19 14:59 03/15/19 09:47 Haloperidol Lactate (Haldol) 1 mg Q4H PRN IM Agitation 03/12/19 15:28 04/11/19 15:27 Heparin Sodium (Porcine) (Heparin 5000 units/ml) 5,000 units EVERY 12 HOURS SUBQ 03/12/19 21:00 04/11/19 08:59 03/15/19 13:23 Lorazepam (Ativan) 2 mg Q6H PRN ORAL For Anxiety 03/12/19 15:29 03/19/19 15:28 03/14/19 04:59 Metoprolol Tartrate (Lopressor) 25 mg Q12HR ORAL 03/12/19 21:00 04/09/19 13:44 03/15/19 09:47 Piperacillin Sod/ Tazobactam Sod 3.375 gm/Dextrose 110 ml @ 27.5 mls/hr Q8HR IVPB 03/13/19 22:00 03/20/19 21:59 03/15/19 13:22 Quetiapine Fumarate (SEROqueL) 50 mg BID ORAL 03/12/19 18:00 04/11/19 08:59 03/15/19 09:48 Tamsulosin HCl (Flomax) 0.4 mg QHS ORAL 03/12/19 21:00 04/09/19 20:59 03/14/19 22:23 Thiamine HCl (Vitamin B1) 100 mg DAILY ORAL 03/13/19 09:00 04/09/19 14:59 03/15/19 09:48 Vancomycin HCl (Vanco rx to dose) 1 ea DAILY PRN MISC Per rx protocol 03/13/19 09:00 04/09/19 07:44 Vancomycin/Sodium Chloride 275 ml @ 137.5 mls/ hr Q12H IVPB 03/15/19 21:00 03/20/19 20:59 Allergies: Coded Allergies: No Known Allergies (Unverified , 06/02/15) ROS Limited/Unobtainable: No Constitutional: Reports: no symptoms HEENT: Reports: no symptoms Cardiovascular: Reports: no symptoms Respiratory: Reports: no symptoms Gastrointestinal/Abdominal: Reports: no symptoms Genitourinary: Reports: no symptoms Neurologic/Psychiatric: Reports: no symptoms Subjective 64 YO M admitted with hypothermia and alcohol intoxication. Cover for [facility] Med- DR Funes. Await transfer to [facility] Last Vital Signs Date Time Temp Pulse Resp B/P (MAP) Pulse Ox O2 Delivery O2 Flow Rate FiO2 03/15/19 12:00 98.1 93 20 144/94 (111) 95 03/15/19 09:00 Room Air Laboratory Tests Test 03/15/19 08:10 White Blood Count 6.6 K/UL (4.8-10.8) Red Blood Count 3.54 M/UL (4.70-6.10) L Hemoglobin 13.2 G/DL (14.2-18.0) L Hematocrit 41.2 % (42.0-52.0) L Mean Corpuscular Volume 117 FL (80-99) H Mean Corpuscular Hemoglobin 37.4 PG (27.0-31.0) H Mean Corpuscular Hemoglobin Concent 32.1 G/DL (32.0-36.0) Red Cell Distribution Width 12.9 % (11.6-14.8) Platelet Count 127 K/UL (150-450) L Mean Platelet Volume 8.4 FL (6.5-10.1) Neutrophils (%) (Auto) % (45.0-75.0) Lymphocytes (%) (Auto) % (20.0-45.0) Monocytes (%) (Auto) % (1.0-10.0) Eosinophils (%) (Auto) % (0.0-3.0) Basophils (%) (Auto) % (0.0-2.0) Differential Total Cells Counted 100 Neutrophils % (Manual) 73 % (45-75) Lymphocytes % (Manual) 9 % (20-45) L Monocytes % (Manual) 14 % (1-10) H Eosinophils % (Manual) 4 % (0-3) H Basophils % (Manual) 0 % (0-2) Band Neutrophils 0 % (0-8) Platelet Estimate Decreased L Platelet Morphology Normal Anisocytosis 2+ Macrocytosis 3+ Sodium Level 149 MMOL/L (136-145) H Potassium Level 3.0 MMOL/L (3.5-5.1) L Chloride Level 113 MMOL/L (98-107) H Carbon Dioxide Level 29 MMOL/L (21-32) Anion Gap 7 mmol/L (5-15) Blood Urea Nitrogen 15 mg/dL (7-18) Creatinine 1.1 MG/DL (0.55-1.30) Estimat Glomerular Filtration Rate > 60 mL/min (>60) Glucose Level 115 MG/DL (74-106) H Calcium Level 8.2 MG/DL (8.5-10.1) L Vancomycin Level Trough 31.0 ug/mL (5.0-12.0) H Intake and Output 03/14/19 03/15/19 18:59 06:59 Intake Total 1185.0 ml 412.5 ml Output Total 1200 ml 1300 ml Balance -15.0 ml -887.5 ml IV Total 685.0 ml 412.5 ml Other 500 ml Output Urine Total 1200 ml 1300 ml # Bowel Movements 1 Objective Objective GENERAL: The patient is awake, responsive, no acute distress. HEAD AND NECK: Pupils are reactive to light. Extraocular movements intact. Neck was supple. No JVD. LUNGS: Good air entry with no wheezing or rales. HEART: S1, S2. Tachycardic. No murmur or gallops. ABDOMEN: Soft, nondistended, nontender, and morbidly obese. EXTREMITIES: No cyanosis or clubbing. +1 edema. The patient has a blister on lower extremity. NEUROLOGIC: Cranial nerves II through XII grossly intact. The patient is moving all extremities. RECTAL: Refused and deferred. GENITOURINARY: Moran cath PSYCHIATRIC: Mood and affect is intact. Assessment/Plan Assessment/Plan Assessment/Plan Assessment/Plan ASSESSMENT: 1. Sepsis, lactic acidosis. 2. Tachycardia. Improved 3. Dehydration. 4. Alcohol abuse. 5. Hypothermia. Resolved 6. Hyponatremia. 7. Hypomagnesemia. 8. Urinary retention. PLAN: 1. in Monitor Unit 2. We will follow up laboratory. 3. Follow up with cultures. 4. Code status is Full Code. 5. DVT prophylaxis. 6. Heparin subcutaneous. 7. Broad-spectrum antibiotics with vancomycin and Zosyn. 8. Start on Flomax 9. 2D echo. 10. Discharge planning-transfer to [place] Reji Saucedo MD Mar 15, 2019 14:20
--- NOTE | 2019-03-15 15:25 | Cardiac Electrophysiology PN ---
Assessment/Plan Assessment/Plan 1. Sinus tachycardia due to alcohol withdrawal. No evidence of SVT or atrial fibrillation. 2. Hypertension. Continue metoprolol 25 mg b.i.d. 3. Sepsis, on IV antibiotics. 4. Heavy alcohol use, on thiamine and folate. Transfer to [place] pending INDRA RN Subjective Subjective Awaiting [place] transfer. No CP or SOB. Confused in NAD Objective Last 24 Hour Vital Signs Date Time Temp Pulse Resp B/P (MAP) Pulse Ox O2 Delivery O2 Flow Rate FiO2 03/15/19 12:00 98.1 93 20 144/94 (111) 95 03/15/19 09:47 91 162/93 03/15/19 09:00 Room Air 03/15/19 08:14 98.4 91 20 162/93 (116) 99 03/15/19 04:00 98.7 75 18 155/95 (115) 97 03/15/19 00:00 98.1 72 18 135/89 (104) 98 03/14/19 22:24 70 133/80 03/14/19 21:00 Room Air 03/14/19 20:00 97.5 70 18 133/80 (97) 98 03/14/19 16:00 97.9 71 17 152/76 (101) 97 Intake and Output 03/14/19 03/15/19 18:59 06:59 Intake Total 1185.0 ml 412.5 ml Output Total 1200 ml 1300 ml Balance -15.0 ml -887.5 ml IV Total 685.0 ml 412.5 ml Other 500 ml Output Urine Total 1200 ml 1300 ml # Bowel Movements 1 Laboratory Tests Test 03/15/19 08:10 White Blood Count 6.6 K/UL (4.8-10.8) Red Blood Count 3.54 M/UL (4.70-6.10) L Hemoglobin 13.2 G/DL (14.2-18.0) L Hematocrit 41.2 % (42.0-52.0) L Mean Corpuscular Volume 117 FL (80-99) H Mean Corpuscular Hemoglobin 37.4 PG (27.0-31.0) H Mean Corpuscular Hemoglobin Concent 32.1 G/DL (32.0-36.0) Red Cell Distribution Width 12.9 % (11.6-14.8) Platelet Count 127 K/UL (150-450) L Mean Platelet Volume 8.4 FL (6.5-10.1) Neutrophils (%) (Auto) % (45.0-75.0) Lymphocytes (%) (Auto) % (20.0-45.0) Monocytes (%) (Auto) % (1.0-10.0) Eosinophils (%) (Auto) % (0.0-3.0) Basophils (%) (Auto) % (0.0-2.0) Differential Total Cells Counted 100 Neutrophils % (Manual) 73 % (45-75) Lymphocytes % (Manual) 9 % (20-45) L Monocytes % (Manual) 14 % (1-10) H Eosinophils % (Manual) 4 % (0-3) H Basophils % (Manual) 0 % (0-2) Band Neutrophils 0 % (0-8) Platelet Estimate Decreased L Platelet Morphology Normal Anisocytosis 2+ Macrocytosis 3+ Sodium Level 149 MMOL/L (136-145) H Potassium Level 3.0 MMOL/L (3.5-5.1) L Chloride Level 113 MMOL/L (98-107) H Carbon Dioxide Level 29 MMOL/L (21-32) Anion Gap 7 mmol/L (5-15) Blood Urea Nitrogen 15 mg/dL (7-18) Creatinine 1.1 MG/DL (0.55-1.30) Estimat Glomerular Filtration Rate > 60 mL/min (>60) Glucose Level 115 MG/DL (74-106) H Calcium Level 8.2 MG/DL (8.5-10.1) L Vancomycin Level Trough 31.0 ug/mL (5.0-12.0) H Objective HEAD AND NECK: No JVD. LUNGS: Clear. CARDIOVASCULAR: Nl S1 and S2 with no gallop or murmur. ABDOMEN: Soft. EXTREMITIES: No pitting edema. Yevgeniy Rondon MD Mar 15, 2019 15:25
--- NOTE | 2019-03-15 19:40 | NUR ---
NURSE NOTES: Received report from REJI Whyte. Patient sleeping. On room air, no signs of distress or labored breathing. IV intact, patent, and infusing IV fluids. Moran intact, patent, and draining urine. Bed in lowest position with call light in reach. Will continue with plan of care.
--- NOTE | 2019-03-15 19:42 | NUR ---
HAND-OFF: Report given to REJI Hamilton.
--- NOTE | 2019-03-15 19:58 | NUR ---
NURSE NOTES: Spoke to Kena from [facility]. Gave patient information, she stated she will call back and follow up with transfer information. Charge nurse Grisel Johnson made aware.
[2019-03-15] MEDS ORDERED: Vancomycin 1.5gm/NS Premix 275 ML IVPB SCH (21:00)
[2019-03-15] MEDS: Tamsulosin 0.4mg cap ORAL SCH (21:10)
--- NOTE | 2019-03-15 23:57 | NUR ---
NURSE NOTES: Called family to notify of patient's transfer to [facility]. Phone continuously rings without an answering service. Charge nurse also called with same result.
--- NOTE | 2019-03-15 23:59 | NUR ---
NURSE NOTES: Gave report to heddler tier from [facility] ambulance [facility]. Patient being transferred to [facility]
--- NOTE | 2019-03-16 | NUR ---
NURSE NOTES: Gave report to REJI Trinidad from [facility].
--- NOTE | 2019-03-16 00:19 | NUR ---
NURSE NOTES: Called brother's cell and informed him of patient's transfer to [facility]. Charge nurse aware.
--- NOTE | 2019-03-18 08:38 | Discharge Summary ---
Discharge Summary Discharge Summary _ DATE OF ADMISSION: 03/10/2019 DATE OF DISCHARGE: 03/16/2019 DISCHARGED BY: Dr. 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 Patient was drinking alcohol and complained of left shoulder pain. He denied any fall or trauma. He felt that his skin was cool. Shortly after initial evaluation in emergency department, patient was noted to be hypothermic . Blood pressure was elevated 177/104 , pulse oximetry was stable on room air. Laboratory work-up revealed no leukocytosis, hemoglobin 12, hematocrit 36.5, platelet count 95. Glucose 129. Sodium 126. Stable renal parameters. Lactic acid 3.6. Troponin negative. AST 186, ALT 99, alkaline phosphatase 108. Magnesium 1.9. Albumin 3.1. TSH within normal limits. EKG revealed sinus bradycardia , no acute ischemic changes . Chest x-ray revealed no acute cardiopulmonary pathology. Serum alcohol level 358. Serum Tylenol and salicylates both negative. Physical exam revealed old laceration over the left knee and left elbow. Patient presented with altered level of consciousness likely due to alcohol intoxication, hyponatremia, hypochloremia, and lactic acidosis. Septic work-up initiated. Patient started on broad-spectrum antibiotic and subsequently admitted for further management. CONSULTANTS: imaging account manager Dr. Garay psychiatrist Dr. Devries [facility]RSE: Patient admitted to [facility]. Patient started on aggressive IV hydration with close monitoring of volumes and electrolytes. Electrolytes corrected as needed . Magnesium and potassium were replaced. Hyponatremia resolved. DVT prophylaxis provided. Patient started on broad-spectrum antibiotics. Influenza swab was negative. Blood cultures were negative. Patient started on thiamine and folic acid. Ativan was on board as needed for anxiety. Urine toxicology screen was negative. Graduate Assistant Athletic Trainer followed. Patient developed sinus tachycardia which was likely due to alcohol withdrawal. No evidence of SVT or atrial fibrillation. Blood pressure was managed with beta-pooja. Echocardiogram revealed preserved ejection fraction of 60 to 65% with no evidence of wall motion abnormality to the extent visualized. No evidence of left ventricular hypertrophy. Patient was counseled on abstinence from alcohol. Hypothermia resolved. Patient noted to have urinary retention. Patient was started on Flomax. Psychiatrist followed . Per psychiatrist patient had alcohol dependency with alcohol withdrawal . Patient started on Prozac , and dose of Ativan was uptitrated . Reality orientation and supportive therapy provided. Patient clinically stabilized. Patient remained afebrile , no leukocytosis. Hypothermia resolved. Pulse oximetry was stable on room air. Patient clinically stabilized and was ready for transfer to [facility] as per insurance for further management. FINAL DIAGNOSES: Sepsis Lactic acidosis Dehydration Alcohol intoxication with alcohol abuse Hypothermia-resolved Hyponatremia-resolved Hypertension Sinus tachycardia due to alcohol withdrawal Urinary retention Electrolytes abnormality: hypokalemia, hypomagnesemia DISCHARGE MEDICATIONS: List of medication was sent to accepting facility. DISCHARGE INSTRUCTIONS: Patient was transferred to [facility] as per insurance. Follow-up with medical provider at the facility. . I have been assigned to dictate discharge summary for this account. I was not involved in the patient's management. Tonia Arroyo NP Mar 18, 2019 08:38
--- NOTE | 2019-03-18 16:08 | NUR ---
*-* INSURANCE *-* UPDATED CLINICALS HAVE BEEN FAXED TO: [facility] ([facility]ONH) [facility]:KEN REF# [id number] OR [id number] P: [phone] DIRECT TO [facility] F: [phone]
== END 2019-03-16 | disposition short-term general hospital (02) | DRG 720 ==
LOC: EDBD 22:38 → EMR 23:00 → 2W 03-10 02:22 → EDBEDREQ 03-10 03:09 → 2W 03-10 03:46 → 2E 03-11 07:01 → 4E 03-12 15:27
DX: A41.9 Sepsis, unspecified organism (principal); T68.XXXA Hypothermia, initial encounter; X31.XXXA Exposure to excessive natural cold, initial encounter; E86.0 Dehydration; E87.1 Hypo-osmolality and hyponatremia; E83.42 Hypomagnesemia; F10.239 Alcohol dependence with withdrawal, unspecified; E66.9 Obesity, unspecified; R33.9 Retention of urine, unspecified; Z68.37 Body mass index [BMI] 37.0-37.9, adult; I10 Essential (primary) hypertension; E87.6 Hypokalemia
CPT/HCPCS: 36415; 71045; 80048; 80053; 80202; 80307; 81003; 82248; 82550; 83605; 83735; 84100; 84443; 84484; 85007; 85025; 86710; 87040; 87081; 90471; 90715; 93005; 93306; 96365; 96367; 96368; 99291; 99292; G0480; J7030; J8499